=== PATIENT | male | born 1945 | race Caucasian/White ===

== ENCOUNTER 2020-08-01 10:04 | Emergency (ER) | payer MEDICARE, SELFPAY ==
--- NOTE | 2020-08-01 10:16 | ED.LOWEXIN ---
HPI - Extremity Injury (Lower) General Chief Complaint: Extremity Problem,Nontraumatic Stated Complaint: right leg pain Time Seen by Provider: 08/01/20 10:16 Source: patient and RN notes reviewed History of Present Illness HPI Narrative: Patient is a 74-year-old male who presents the urgent care with complaints of right leg pain extending from the right hip/buttocks down to the knee. Patient states he is extremely active and plays pickle ball, tennis and does a lot of walking and tracking his steps. Patient states that the day before he woke up with the pain, he had been walking up and down the lateral several times at home. Otherwise, that was the only difference in activity. Patient states that he is extremely active and does have a history of sciatica, which exacerbated when driving a long distance. Patient denies of any chest pain or shortness of breath. Denies of any swelling or redness to the leg. States that his pain is exacerbated when laying flat in bed or with weightbearing activity. Patient states it is also difficult to bend over. Denies of any known injury, fall, trauma to the leg. Currently denies of any back pain. No other acute complaints. No acute distress noted. Patient aware of the plan of care. Some parts of this dictation were generated by voice recognition software and may contain typographical and/or grammatical inaccuracies. Related Data Home Medications Medication Instructions Recorded Confirmed amlodipine 10 mg PO DAILY 08/01/20 08/01/20 atorvastatin 20 mg PO DAILY 08/01/20 08/01/20 glucosamine sulfate [Glucosamine] 500 mg PO BID 08/01/20 08/01/20 omega-3 fatty acids-vitamin E 1 cap PO DAILY 08/01/20 08/01/20 [Fish Oil] Allergies Allergy/AdvReac Type Severity Reaction Status Date / Time No Known Allergies Allergy Mild Verified 08/01/20 10:24 Review of Systems Review of Systems: Narrative: CONSTITUTIONAL: Denies fever, chills, or sweats. EYES: Denies visual changes, redness, or discharge. ENT: Denies rhinorrhea, congestion, sore throat, or otalgia. CARDIOVASCULAR: Denies chest pain, palpitations, or edema. RESPIRATORY: Denies cough or dyspnea. GASTROINTESTINAL: Denies abdominal pain, nausea, vomiting, or diarrhea. GENITOURINARY: Denies dysuria or hematuria. SKIN: Denies rash or itching. MUSCULOSKELETAL: Reports of right hip pain extending to the knee NEUROLOGIC: Denies headache, numbness, or weakness. All other systems reviewed are negative, except as documented in HPI. PMFSH Comments At the time of my signature, I reviewed and agree with the nursing past medical, surgical, social, and family history. There is no relevant family history pertinent to the patient complaint. Exam Narrative: Exam Narrative: GENERAL: This is a well-nourished, well-developed patient, in no apparent distress. HEAD: normocephalic, atraumatic. EYES: PERRL. Sclera clear/white. Vision is grossly intact. EARS: External ears normal NOSE: External nose normal with no obvious nasal discharge, nares without redness, no rhinorrhea. THROAT: Mucous membranes moist NECK: Neck supple SKIN: warm, intact with no suspicious lesions or rash, good texture and turgor. NEURO: awake, alert, and oriented to person, place and time. There were no obvious focal neurologic abnormalities. EXTREMITIES: No clubbing, cyanosis, or edema. No obvious edema or erythema noted to the right lower extremity. Range of motion to right lower extremity within normal limits. Pain to the right posterior hip extending to the posterior right knee exacerbated with legs hanging, weightbearing, and bending at the waist. No obvious deformity and no shortening of the right lower extremity. Positive strong right pedal pulse with capillary refill less than 2 seconds. BACK: Nontender without deformity or crepitance. Course Vital Signs Vital signs: Vital Signs Temperature 98.2 F 08/01/20 10:21 Pulse Rate 67 08/01/20 10:21 Respiratory Rate 20 08/01
[2020-08-01 10:21] VITALS: BP 170/64; PULSE 67; RESP 20; TEMP 36.8; O2SAT 100
== END 2020-08-01 10:45 | disposition home or self-care (01) ==
PROVIDERS: Emergency Provider Nurse Practitioner Family; PCP Nurse Practitioner Adult Health
DX: M54.31 Sciatica, right side (principal); M76.31 Iliotibial band syndrome, right leg; E78.00 Pure hypercholesterolemia, unspecified; I10 Essential (primary) hypertension
CPT/HCPCS: 99213; G0463

== ENCOUNTER 2021-06-09 14:47 | Outpatient (CLI) | payer MEDICARE, SELFPAY ==
--- NOTE | ~2021-06-09 | XR_ITS ---
EXAMINATION: XR bone survey comp/metastic DATE: 06/09/2021 15:56 INDICATION: Plasma cell disorder TECHNIQUE: A skeletal survey was performed including AP views of the chest, abdomen and pelvis; AP an d lateral/lateral swimmers views of the cervical, thoracic and lumbar spine; lateral view of the skul l, and AP and lateral views of the appendicular skeleton excluding the hands and feet. COMPARISON: None. FINDINGS: Scattered moderate degenerative skeletal changes in the spine and appendicular skeleton. There is a s yarelis 9 x 5 mm lucent lesion at the subtrochanteric proximal right femur which is seen only on the AP projections. No other suspicious lytic or blastic bone lesions. Prominent osteophyte and heterotopic ossification at the distal right humeral lateral epicondyle which could be enthesopathic or sequela of old trauma. There are couple subtle nodular opacities projecting over the lateral aspect of the ri ght upper and lower lung zones. Left lung is clear. No pleural effusion or pneumothorax. Cardiomedias tinal silhouette is normal. Normal bowel gas pattern. IMPRESSION: 1. Single small lucent lesion projecting over the subtrochanteric proximal right femur which is seen only on the frontal projections equivocal for artifact versus a lytic lesion. No other suspicious bon e lesions identified. 2. Couple subtle nodular opacities projecting over the right upper and lower lung zones. Recommend est CT for further evaluation. Reviewed, dictated and finalized at location A. IMPRESSION: 1. Single small lucent lesion projecting over the subtrochanteric proximal righ t femur which is seen only on the frontal projections equivocal for artifact ve rsus a lytic lesion. No other suspicious bone lesions identified. 2. Couple subtle nodular opacities projecting over the right upper and lower shayy ng zones. Recommend chest CT for further evaluation.
== END 2021-06-09 14:48 | disposition home or self-care (01) ==
LOC: ANHIMG 14:51
PROVIDERS: PCP Nurse Practitioner Adult Health; Visit Provider Internal Medicine Hematology & Oncology
DX: D72.9 Disorder of white blood cells, unspecified (principal); M89.9 Disorder of bone, unspecified; R91.8 Other nonspecific abnormal finding of lung field
CPT/HCPCS: 77075

== ENCOUNTER 2021-06-13 01:57 | Day surgery (SDC) | payer MEDICARE, SELFPAY ==
[2021-06-08 09:13] VITALS: BMI 32.3
[2021-06-13 08:48] VITALS: BP 171/66; PULSE 90; RESP 20; TEMP 36.6; O2SAT 100
[2021-06-13] MEDS: LACTATED RINGERS 1,000 ML 150 ML IV CONT (08:56)
--- NOTE | 2021-06-13 09:45 | WPDANESEPPF ---
Anes - Initial Pre Proc Eval Procedure: Operation Date: 06/13/21 10:00 Proposed Procedures p Esophagogastroduodenoscopy - Ubaldo Hernandez MD Date/Time: 06/13/21 09:45 Surgeon: Ubaldo Hernandez MD Pre Op Diagnosis: abnormal CAT scan Patient Data Age: 75 Gender: M Height: 1.78 m Weight: 102.5 kg Last Vital Signs Temp 97.9 F 06/13/21 08:48 Pulse 90 06/13/21 08:48 Resp 20 06/13/21 08:48 BP 171/66 H 06/13/21 08:48 Pulse Ox 100 06/13/21 08:48 Allergies Allergy/AdvReac Type Severity Reaction Status Date / Time No Known Allergies Allergy Mild Verified 06/13/21 08:47 Home Medications Medication Instructions Recorded Confirmed Type amlodipine 10 mg PO HS 08/01/20 06/13/21 History atorvastatin 20 mg PO HS 08/01/20 06/13/21 History glucosamine sulfate [Glucosamine] 500 mg PO BID 08/01/20 06/13/21 History ibuprofen 800 mg PO TID PRN #20 tablet 08/01/20 06/13/21 Rx omega-3 fatty acids-vitamin E 1 cap PO DAILY 08/01/20 06/13/21 History [Fish Oil] aspirin [Aspir-81] 81 mg PO DAILY 06/08/21 06/13/21 History famotidine 40 mg PO DAILY 06/08/21 06/13/21 History hydrocodone-acetaminophen 1 tablet PO QID PRN 06/08/21 06/13/21 History Patient hx anesthesia problems: none Family hx anesthesia problems: none Results Review: All pre-operative results and documents have been reviewed as part of the pre-operative evaluation. [facility] Past Medical History Medical History (Updated 06/13/21 @ 09:40 by Mike Nevarez MD) Hyperlipidemia Hypertension Social History Social History Smoking status: Never smoker Alcohol intake: current Drinks per week: 1 Spiritual care concerns: No Anes - Eval Final PreProcedure Day of Procedure 06/13/21 09:45 Patient weight: obese Heart: regular rate and rhythm Lungs: clear to auscultation Airway: Mallampati scale class II Neurological: alert and oriented Last oral intake: >/= 8 hours ASA classification: III Emergent: no Anesthetic plan: proceed Anesthesia type and monitoring: general GIVS and standard monitoring Results Review: All pre-operative results and documents have been reviewed as part of the pre-operative evaluation. Informed Consent: The patient's anesthetic plan and its attendant risks and benefits were discussed with the patient/family/POA. Questions were solicited and answers provided to the satisfaction of the patient/family/POA.
--- NOTE | 2021-06-13 09:58 | PM.HPGS ---
History of Present Illness History of Present Illness Consent: Risks, benefits, and alternatives have been discussed and questions answered. Patient agrees to proceed with procedure. Chief complaint: abnormal CAT scan Narrative: Lavell Cao is a 75 year old male with bloating, abdominal discomfort and weight loss. CT scan showed thickening of gastric mucosa and bone mets suggestive of malignancy. He had colonoscopy in the past but never EGD. Already saw oncology and next week will get PET scan Review of Systems Constitutional: Constitutional: Denies headache(s) and Denies weakness Eyes: Eyes: Denies blurry vision ENT: Reports Normal hearing present, Denies headache(s) and Denies neck pain Cardiovascular: Cardiovascular: Denies chest pain and Denies dyspnea Respiratory: Respiratory: Denies dyspnea Gastrointestinal: Gastrointestinal: Reports no additional gastrointestinal complaints Genitourinary: Genitourinary: Denies dysuria Musculoskeletal: Musculoskeletal: Denies neck pain Integumentary/Breasts: Skin/Breast: Denies dry skin Neurologic: Reports Normal hearing present, Denies headache(s) and Denies weakness Psychiatric: Psychiatric: Denies anxiety Endocrine: Endocrine: Denies change in body appearance Hematologic/Lymphatic: Hematologic/Lymphatic: Denies easy bleeding Allergic/Immunologic: Allergic/Immunologic: Denies urticaria PMFSH Past Medical History Medical History (Updated 06/13/21 @ 10:00 by Ubaldo Hernandez MD) Abnormal CT scan, stomach Bone lesion Hyperlipidemia Hypertension Social History Social History Smoking status: Never smoker Alcohol intake: current Drinks per week: 1 Spiritual care concerns: No Meds Home Medications and Allergies Home Medications Medication Instructions Recorded Confirmed Type amlodipine 10 mg PO HS 08/01/20 06/13/21 History atorvastatin 20 mg PO HS 08/01/20 06/13/21 History glucosamine sulfate [Glucosamine] 500 mg PO BID 08/01/20 06/13/21 History ibuprofen 800 mg PO TID PRN #20 tablet 08/01/20 06/13/21 Rx omega-3 fatty acids-vitamin E 1 cap PO DAILY 08/01/20 06/13/21 History [Fish Oil] aspirin [Aspir-81] 81 mg PO DAILY 06/08/21 06/13/21 History famotidine 40 mg PO DAILY 06/08/21 06/13/21 History hydrocodone-acetaminophen 1 tablet PO QID PRN 09/23/21 09/28/21 History Allergies Allergy/AdvReac Type Severity Reaction Status Date / Time No Known Allergies Allergy Mild Verified 06/13/21 08:47 Vital Signs Vital Signs - 24 hr 06/13/21 08:48 Temperature 97.9 F Pulse Rate 90 Respiratory Rate 20 Blood Pressure 171/66 H Pulse Oximetry 100 Exam Const: General: comfortable and no acute distress HENMT: General nose exam: Normal nares present Eyes: General: appearance normal, both eyes and all related structures Neck: Neck: no JVD Resp: Auscultation: clear to auscultation bilaterally Cardio: Rate: regular rate Rhythm: regular rhythm GI: Inspection: non-distended GI Palp: Yes Soft to palpation Skin: General skin exam: normal color Neuro: General: gait normal Speech: normal speech Extrem: General: normal to inspection Psych: Mental Status: mental status grossly normal Assessment and Plan Assessment and plan (1) Abnormal CT scan, stomach: Code(s): R93.3 - Abnormal findings on diagnostic imaging of other parts of digestive tract Status: Acute Assessment and Plan: egd with bx (2) Bone lesion: Code(s): M89.9 - Disorder of bone, unspecified Status: Acute Assessment and Plan: already seeing oncology
[2021-06-13] MEDS: BENZOCAINE (*SP) 60 ML SPRAY CAN (HURRICAINE) 1 SPRAY MUCOUS MEM (10:04)
[2021-06-13 10:28] VITALS: BP 110/60; PULSE 65; RESP 22; O2SAT 97
[2021-06-13 10:38] VITALS: BP 98/54; PULSE 60; RESP 20; O2SAT 93
[2021-06-13 10:48] VITALS: BP 107/43; PULSE 66; RESP 18; O2SAT 94
== END 2021-06-13 11:10 | disposition home or self-care (01) ==
PROVIDERS: PCP Nurse Practitioner Adult Health; Visit Provider Internal Medicine Gastroenterology
PROC: 0DJ08ZZ Inspection of Upper Intestinal Tract, Via Natural or Artificial Opening Endoscopic (ICD-10-PCS; CPT 43235; principal; 2021-06-13 10:00)
DX: K44.9 Diaphragmatic hernia without obstruction or gangrene (principal); K31.7 Polyp of stomach and duodenum; M89.9 Disorder of bone, unspecified; R14.0 Abdominal distension (gaseous); I10 Essential (primary) hypertension; E78.5 Hyperlipidemia, unspecified; E66.9 Obesity, unspecified; Z68.32 Body mass index [BMI] 32.0-32.9, adult
CPT/HCPCS: 43239; 43251; 88305; 88342; J2704; J7120

== ENCOUNTER 2021-06-15 07:25 | Outpatient (CLI) | payer MEDICARE, SELFPAY ==
--- NOTE | ~2021-06-15 | PE_ITS ---
EXAMINATION: PET skull to mid thigh DATE: 06/15/2021 09:52 INDICATION: Lytic bone lesions on prior radiographs TECHNIQUE: Blood glucose level was 99 mg/dL. 12.143 mCi of 18-fluorodeoxyglucose (18-FDG) was adminis tered i.v. Low dose computed tomography (CT) images were acquired from the base of the brain to the p roximal thighs for attenuation correction and anatomic localization. Positron emission tomography (PE T) images were acquired in the same distribution beginning 73 minutes after injection. Images includi ng fused PET/CT images were reconstructed in axial, coronal, and sagittal planes. Automated exposure control technique was employed. The dose-length product was 1236.38mGy-cm. COMPARISON: Skeletal survey dated 06/09/2021 FINDINGS: Musculoskeletal: There are numerous lytic bone lesions throughout the visualized axial and appendicular skeleton which demonstrate marked FDG uptake, many with maximal SUV levels of >20 . Head/neck: There is symmetric increased activity in the oral cavity, laryngeal muscles and ocular muscles withou t CT correlate, likely physiologic. There is an approximately 3 x 2 cm FDG avid paraspinal mass along the right side of the posterior elements of C2 with maximal SUV of 16.0. No pathologically enlarged cervical lymphadenopathy in the visualized head or neck. Chest: Respiratory motion the lungs. There is atelectasis at the bilateral lung bases grossly left lower lob e. No pneumonia, suspicious pulmonary nodules or pleural effusion. Cardiomegaly. There is an approxim ately 5.8 x 4.7 cm region of marked increased FDG uptake with maximal SUV of 19.9 in the region of th e anterior two thirds of the right atrium without evident correlate on CT images. There is a signific antly higher than the activity in either the blood pool or the remainder of the myocardium. Atheroscl erotic coronary artery calcific lesions. No pericardial effusion. Large markedly FDG avid paraspinal mass along the left anterior side of the lower thoracic spine at t he level of T10-T12 which at the level of T11 measures 7.9 x 2.8 cm in maximal orthogonal dimensions and which extends approximately 10.2 cm craniocaudally. This appears to arise from a large lytic lesi on at T11. There is a pathologic compression fracture of the vertebral body as well as erosion of the left anterolateral wall of the vertebral body. The mass as well as the increased uptake in the verte bral body demonstrates a maximal SUV of 21.6. Similar smaller FDG avid paraspinal mass on the right s umesh of T4 and T5. Abdomen/pelvis/proximal thighs: Physiologic renal accumulation and excretion of FDG activity in the kidneys, bladder and along portio ns of ureters. Normal degree and heterogenous pattern of increased uptake throughout the liver withou t radiologic correlate or dominant FDG avid lesion. There is a 3.0 cm low-attenuation hepatic cyst wi th corresponding fluid beneath defect on the PET images. The gallbladder, spleen and bilateral adrena l glands are normal. There are couple FDG avid lesions in the pancreatic head and body with maximal S UV of 5.7 and 6.3 respectively which are without evident correlate on the noncontrast CT images. The size of the region of increased FDG uptake is approximately 2-3 cm for both lesions. Mild uptake sca ttered throughout the bowels without radiologic correlate, also likely physiologic. Small fat-contain ing left inguinal hernia. As in the thoracic spine and there are smaller regions of paraspinal soft t issue with increased FDG uptake. There is a larger extraosseous mass extending anteriorly and posteri dewey from a lytic lesion at the central left iliac wing which is difficult on CT images to discrimina te from the surrounding gluteal and iliac is muscles. The region of increased FDG uptake measures iván roximately 7 x 6 cm in maximal diameter with maximal SUV of 22.7. Similar region region of increased
[2021-06-15 07:49] LABS: Glucose Point of Care 99 mg/dl (65-105)
== END 2021-06-15 07:26 | disposition home or self-care (01) ==
LOC: ANHIMG 07:28
PROVIDERS: PCP Nurse Practitioner Adult Health; Visit Provider Nurse Practitioner Adult Health
DX: R93.3 Abnormal findings on diagnostic imaging of other parts of digestive tract (principal)
CPT/HCPCS: 78815; A9552

== ENCOUNTER 2021-06-16 02:40 | Day surgery (SDC) | payer MEDICARE, SELFPAY ==
--- NOTE | ~2021-06-16 | BM_ITS ---
EXAMINATION: CCL bone marrow asp w bx diag ORDER COMPLETED DATE: 06/16/2021 11:02 INDICATION: Plasma cell disorder TECHNIQUE: A time-out was performed to verify the patient's name, date of , and procedure to b e performed. The procedure including the risks, benefits, and alternatives was discussed with the pat ient. Risks discussed included bleeding and infection. The patient understood the risks and agreed to proceed. The skin overlying the left posterior iliac spine was prepped and draped in usual sterile f ashion. Anesthetic was administered with 1% lidocaine subcutaneously. Systemic analgesia was provided with 100 mcg fentanyl IV. An 11 gauge needle was inserted into the ilium with fluoroscopic guidance. Bone marrow was aspirated. An 8 gauge needle was then inserted into the ilium with fluoroscopic guid ance. A core bone marrow biopsy was obtained. There were no immediate complications. Fluoroscopy expo sure time was 0.1 minutes. The total number of images was 10. FINDINGS: Real-time fluoroscopy demonstrates a marker overlying the left posterior iliac spine. IMPRESSION: 1. Successful fluoro-guided bone marrow aspiration. 2. Successful fluoro-guided bone marrow core biopsy. Reviewed, dictated and finalized at location A.
[2021-06-16 09:14] VITALS: BMI 32.3
[2021-06-16 09:20] VITALS: BP 174/58; PULSE 93; RESP 13; TEMP 36.5; O2SAT 98
[2021-06-16 10:07] LABS: Basophils Percent Auto 0.6 % (0.2-1.2); Eosinophils Percent Auto 0.6 % (0-4.4); Hematocrit 29.7 % (42.0-52.0); Hemoglobin 9.7 g/dL (14.0-18.0); Immature Granulocyte Absolute 0.02 K/mm3 (0.00-0.031); Immature Granulocyte Percent A 0.6 % (0-0.5); Lymphocytes Absolute Auto 0.67 K/mm3 (0.9-3.2); Lymphocytes Percent Auto 20.7 % (18.3-44.2); Mean Corpuscular HGB Conc 32.7 g/dl (32-36); Mean Corpuscular Hemoglobin 31.3 pg (26-34); Mean Corpuscular Volume 95.8 fl (80-100); Mean Platelet Volume 8.8 fl (7.4-10.4); Monocytes Absolute Auto 0.3 K/mm3 (0.1-0.6); Monocytes Percent Auto 10.2 % (2.6-8.5); Neutrophils Absolute Auto 2.2 K/mm3 (1.3-6.7); Neutrophils Percent Auto 67.3 % (45.5-73.1); Platelet Count Result 157 k/mm3 (150-375); Red Cell Distribution Width 14.2 % (11.5-14.5); White Blood Count 3.2 K/mm3 (4.5-10.0)
--- NOTE | 2021-06-16 10:15 | WPDMODSED ---
Moderate Sedation Note-Pt Data Patient Data Allergies Allergy/AdvReac Type Severity Reaction Status Date / Time No Known Allergies Allergy Mild Verified 06/13/21 08:47 Home Medications Medication Instructions Recorded Confirmed Type amlodipine 10 mg PO HS 08/01/20 06/16/21 History atorvastatin 20 mg PO HS 08/01/20 06/16/21 History glucosamine sulfate [Glucosamine] 1,000 mg PO BID 08/01/20 06/16/21 History omega-3 fatty acids-vitamin E 1 cap PO DAILY 08/01/20 06/16/21 History [Fish Oil] aspirin [Aspir-81] 81 mg PO DAILY 06/08/21 06/16/21 History famotidine 40 mg PO DAILY 06/08/21 06/16/21 History hydrocodone-acetaminophen 1 tablet PO Q6H PRN 06/16/21 06/16/21 History valacyclovir 1,000 mg PO TID 06/16/21 06/16/21 History Sedation/Anesthesia: No previous sedation/anesthesia problems (including family history). PMFSH Past Medical History Medical History Abnormal CT scan, stomach Bone lesion Hyperlipidemia Hypertension Social History Social History Smoking status: Never smoker Alcohol intake: current Drinks per week: 1 Spiritual care concerns: No Mod Sed Physical Exam Physical Exam Pre Procedural Exam: Normal: Appearance, Eyes, Neck, Throat, Lungs, Heart Rate, Heart Rhythm, Abdomen and Extremities Hours since solid foods: 12 Hours since liquid intake: 12 Mallampati Classification: class II Internal Medicine - PN: Obj Da Vital Signs Vital Signs: Vital Signs - 24 hr 06/16/21 09:20 Temperature 97.7 F Pulse Rate 93 Respiratory Rate 13 Blood Pressure 174/58 H Pulse Oximetry 98 Labs CBC & Chem 7: 06/16/21 09:24 ASA Classification/Sedation ASA Classification/Sedation ASA Class: II Emergent: No Risks: Risks, benefits and alternatives explained and patient/family accepted plan for sedation. Patient re-evaluated immediately prior to sedation.
[2021-06-16 10:20] LABS: Prothrombin Time 13.5 Seconds (11.1-14.7)
[2021-06-16 11:00] VITALS: BP 182/76; PULSE 85; RESP 18; TEMP 36.7; O2SAT 100
[2021-06-16 11:15] VITALS: BP 162/71; PULSE 86; RESP 13; TEMP 36.5; O2SAT 100
[2021-06-16 11:30] VITALS: BP 169/72; PULSE 82; RESP 20; O2SAT 100
== END 2021-06-16 11:49 | disposition home or self-care (01) ==
PROVIDERS: PCP Nurse Practitioner Adult Health; Referring Provider Internal Medicine Hematology & Oncology; Visit Provider Radiology Diagnostic Radiology
DX: C90.10 Plasma cell leukemia not having achieved remission (principal); I10 Essential (primary) hypertension; E78.5 Hyperlipidemia, unspecified; Z79.82 Long term (current) use of aspirin
CPT/HCPCS: 36415; 38222; 85025; 85610; 88305; 88311; 88313; 88341; 88342; 88360; 88364; 88365; J1642; J3010; J7040

== ENCOUNTER 2021-07-11 12:20 | Inpatient (IN) | payer MEDICARE, SELFPAY ==
[2021-07-11] VITALS (29 sets, daily range): BP systolic 134–186; BP diastolic 50–70; PULSE 77–99; RESP 16–26; TEMP 36.6–37; O2SAT 97–100; BMI 31.6
--- NOTE | ~2021-07-11 | CT_ITS ---
EXAMINATION: CT abdomen pelvis wo con DATE: 07/11/2021 16:49 INDICATION: Diarrhea. Generalized abdominal pain. TECHNIQUE: Computed tomography (CT) of the abdomen and pelvis was performed without intravenous contr ast. The dose-length product was 1094.20 mGy-cm. Automated exposure control and iterative reconstruct ion technique were employed. COMPARISON: Pet/CT scan dated 06/15/2021. FINDINGS: There is dependent atelectasis. Cardiomegaly. Trace pericardial effusion. No significant pl eural effusion. There are liver cysts. Gallbladder is distended. The spleen, pancreas, adrenal glands and kidneys are unremarkable. The colon is dilated with large amount of retained fecal material. No definite obstruction. There is atherosclerosis of the aorta without aneurysm. There is abnormal parav ertebral soft tissue of the upper abdomen with adjacent lytic lesions in the spine. This may represen t extraosseous extension of metastases or hematoma from fractures. There are widespread lytic lesions throughout the spine and pelvis. There is mild wedge compression fractures of T11 and L3 which are l ikely pathologic. IMPRESSION: 1. Markedly distended fecal filled colon without definite obstruction, likely ileus. 2: Widespread lytic lesions of the spine and pelvis. Differential diagnosis includes multiple myelom a, lymphoma and metastatic disease. Probable pathologic fractures of T11 and L3. Reviewed, dictated and finalized at location A. IMPRESSION: 1. Markedly distended fecal filled colon without definite obstruction, likely i leus. 2: Widespread lytic lesions of the spine and pelvis. Differential diagnosis in cludes multiple myeloma, lymphoma and metastatic disease. Probable pathologic f ractures of T11 and L3.
--- NOTE | ~2021-07-11 | XR_ITS ---
EXAMINATION: XR abdomen/kub 1V INDICATION: Ileus TECHNIQUE: Supine views of the abdomen were obtained on 2 radiographs. COMPARISON: 07/13/2021 FINDINGS: Distended loops of large and small bowel persist without significant change. No free intrap eritoneal gas is identified. There are phleboliths of the pelvis. Mild osteoarthritis is noted in the hips. IMPRESSION: 1. Persistently dilated large and small bowel without significant change, consistent with ileus. Reviewed, dictated and finalized at location A. IMPRESSION: 1. Persistently dilated large and small bowel without significant change, consi stent with ileus.
--- NOTE | ~2021-07-11 | XR_ITS ---
EXAMINATION: XR sm bowel follow through DATE: 07/14/2021 10:26 INDICATION: Ileus TECHNIQUE: Oral contrast was administered, and sequential radiographs of the abdomen were obtained un til oral contrast was noted to be in the proximal colon. Fluoroscopy was not performed. COMPARISON: KUB from earlier today FINDINGS: Transit time from the stomach to proximal colon was approximately 30 minutes. There has bee n an overall decrease in small bowel distention with a few persistent dilated small bowel loops ident ified but many now normal in caliber. No free peritoneal gas is identified. IMPRESSION: 1. Improving ileus. Reviewed, dictated and finalized at location A. IMPRESSION: 1. Improving ileus.
--- NOTE | ~2021-07-11 | XR_ITS ---
EXAMINATION: XR abdomen obstructive series DATE: 07/13/2021 07:45 INDICATION: Adynamic ileus. TECHNIQUE: Upright and supine views of the abdomen were obtained. COMPARISON: CT abdomen and pelvis 07/11/2021 FINDINGS: There is gaseous distention of the colon. There is a small volume of stool in the colon. Th ere is mildly dilated small bowel. No free intraperitoneal gas. IMPRESSION: 1. Dilated small and large bowel, likely adynamic ileus. Reviewed, dictated and finalized at location A.
--- NOTE | ~2021-07-11 | US_ITS ---
EXAMINATION:US venous doppler LE BI INDICATION:Leg swelling TECHNIQUE: Multiple grayscale, color flow and Doppler images of the right and left lower extremity de ep venous systems were obtained and reviewed. COMPARISON:No prior studies for comparison. FINDINGS: The common femoral, superficial femoral and popliteal veins demonstrate normal respiratory variation, augmentation and compressibility. Color flow is also seen within the posterior tibial, pe roneal, greater saphenous and profunda veins. IMPRESSION: 1: No lower extremity deep venous thrombosis. Reviewed, dictated and finalized at location A.
--- NOTE | 2021-07-11 13:34 | ED.GENADULT ---
HPI - General Adult General Chief complaint: Allergic Reaction Stated complaint: rash Time Seen by Provider: 07/11/21 12:44 Source: patient History of Present Illness HPI narrative: Patient is a 75 male complaining of generalized rash starting 2 weeks. His rash is erythematous. There is no known alleviating or exacerbating factor. The rash initially started on his legs, but spread to the rest of his body. He also has some abdominal pain and diarrhea. He has back pain. He is undergoing treatment for myeloma. Related Data Home Medications Medication Instructions Recorded Confirmed amlodipine 10 mg PO HS 08/01/20 07/10/21 atorvastatin 20 mg PO HS 08/01/20 07/10/21 famotidine 40 mg PO DAILY 06/08/21 07/10/21 morphine 30 mg PO Q12H 06/29/21 07/10/21 polyethylene glycol 3350 [Miralax] 17 g PO DAILY PRN 06/29/21 07/10/21 acyclovir 200 mg PO TID 07/10/21 07/10/21 furosemide 20 mg PO DAILY 07/10/21 07/10/21 oxycodone 30 mg PO Q4H PRN 07/10/21 07/10/21 sulfamethoxazole-trimethoprim 1 tablet PO Q12H 07/10/21 07/10/21 [SMZ-TMP DS] acyclovir 07/11/21 dexamethasone 07/11/21 lenalidomide [Revlimid] mg PO 07/11/21 oxycodone-acetaminophen 07/11/21 Allergies Allergy/AdvReac Type Severity Reaction Status Date / Time No Known Allergies Allergy Mild Verified 07/06/21 11:23 Review of Systems Constitutional: Constitutional: Denies chills, Denies fever(s), Denies headache(s) and Denies weakness Eyes: Eyes: Denies blurry vision ENT: Denies headache(s) and Denies neck pain Cardiovascular: Cardiovascular: Denies chest pain and Denies dyspnea Respiratory: Respiratory: Denies cough and Denies dyspnea Gastrointestinal: Gastrointestinal: Reports abdominal pain, Reports diarrhea, Denies nausea and Denies vomiting Genitourinary: Genitourinary: Denies hematuria and Denies dysuria Musculoskeletal: Musculoskeletal: Denies back pain and Denies neck pain Integumentary/Breasts: Skin/Breast: Reports rash Neurologic: Denies headache(s) and Denies weakness [facility] Past Medical History Medical History (Updated 07/11/21 @ 20:37 by Erma Stiles MD) Abnormal CT scan, stomach Anxiety Bone lesion Hyperlipidemia Hypertension Shingles Surgical History Surgical History (Updated 07/11/21 @ 20:24 by Leslie Vera NP) H/O lateral meniscus repair of right knee History of bone marrow biopsy History of ear surgery Family History Family History (Updated 07/11/21 @ 20:20 by Leslie Vera NP) Father Lung disease Social History Social History (Updated 07/11/21 @ 20:24 by Leslie Vera NP) Social History: The patient lives with his . Who is the power real estate associate attorney for healthcare. He has 2 children. The patient is retired from [employer] when he worked in [employer]. The patient's lifelong nonsmoker does not use any alcohol marijuana or illicit drugs. Code status DNR Smoking status: Never smoker Alcohol intake: current Drinks per week: 1 Spiritual care concerns: No Exam Const: General: no acute distress and well developed Orientation/consciousness: oriented to person, oriented to place, oriented to time and patient oriented x3 HENMT: Head: normocephalic Ears: external ears normal General nose exam: Normal external nose present Eyes: General: appearance normal, both eyes and all related structures Conjunctivae: conjunctivae normal Neck: Neck: normal visual inspection and full ROM Chest: Chest palpation & inspection: normal inspection of the chest and no tenderness Resp: Effort & Inspection: normal respiratory effort Auscultation: clear to auscultation bilaterally Cardio: Rate: regular rate Rhythm: regular rhythm GI: GI Palp: No abdominal tenderness and Yes Soft to palpation Skin: General skin exam: normal color, turgor normal and erythema (diffuse, worse on both lower legs) Neuro: General: oriented to person, oriented to place, oriented to time and patient oriented x3 Cogn
[2021-07-11 14:01] LABS: Hematocrit 29.2 % (42.0-52.0); Hemoglobin 9.5 g/dL (14.0-18.0); Mean Corpuscular HGB Conc 32.5 g/dl (32-36); Mean Corpuscular Hemoglobin 31.6 pg (26-34); Mean Platelet Volume 9.8 fl (7.4-10.4); Platelet Count Result 168 k/mm3 (150-375); Red Blood Count 3.01 M/mm3 (4.6-6.20); Red Cell Distribution Width 15.9 % (11.5-14.5); White Blood Count 4.1 K/mm3 (4.5-10.0)
[2021-07-11 14:09] LABS: Alanine Aminotransferase 22 U/L (4-50); Albumin Level 3.7 g/dL (3.5-5.1); Alkaline Phosphatase 151 U/L (38-126); Anion Gap 9 mmol/L (8-16); Aspartate Amino Transferase 22 U/L (17-59); Bilirubin,Total 0.6 mg/dL (0.2-1.3); Blood Urea Nitrogen 27 mg/dL (9-20); Carbon Dioxide 22 mmol/L (22-30); Chloride 102 mmol/L (98-107); Estimated CRCL calculation 45 ml/min; Estimated Glomerular Filt Rate 46; Glucose 113 mg/dL (65-110); Potassium 4.4 mmol/L (3.4-5.0); Sodium 133 mmol/L (137-145)
[2021-07-11 14:17] LABS: CRP 4.7 mg/dL (<1.0)
[2021-07-11] MEDS: SODIUM CHLORIDE 0.9% IV 1,000 ML 999 ML IV CONT (14:30)
[2021-07-11 15:00] LABS: Band Neutrophils Percent 7 % (0-6); Eosinophils Absolute Manual 0.04 K/mm3 (0.02-0.5); Eosinophils Percent Manual 1 % (0-4); Lymphocytes Absolute Manual 0.08 K/mm3 (1.1-4.5); Monocytes Absolute Manual 0.04 K/mm3 (0.1-0.90); Monocytes Percent Manual 1 % (3-9); Neutrophils Absolute Manual 3.93 K/mm3 (1.3-6.7); Neutrophils Percent Manual 89 % (46-73); Platelet Estimate Adequate (Adequate); Total Cells Counted 100
[2021-07-11 15:01] LABS: Anisocytosis 2+ (NORMAL)
[2021-07-11 15:17] LABS: Add Urine Microscopic? NO; Appearance Urine Clear (Clear); Bilirubin Urine Negative (Negative); Blood Urine Negative (Negative); Color Urine Yellow (Yellow); Glucose Urine UA Negative (Negative); Ketones Urine Negative (Negative); Leukocyte Esterase Ur Negative LEU/UL (Negative); Nitrate Urine Negative (Negative); Protein Urine Negative (Negative); Specific Grav Ur 1.017 (1.001-1.035); Urobilinogen Urine Negative mg/dL (<2.0)
[2021-07-11 15:32] LABS: Erythrocyte Sedimentation Rate 74 mm/hr (0-20)
[2021-07-11] MEDS: ceFAZolin 2 GM/D5W 50 ML 2 GM/50 ML BAG IVPB (19:28)
--- NOTE | 2021-07-11 20:10 | PM.IMHP ---
H&P: HPI History of Present Illness Date/Time: 07/11/21 20:10 this is a 75 year old male patient who has a history of multiple myeloma and sees Dr. art. The patient was supposed to start radiation treatment today and was not able to proceed with that. The patient stated that he is had a rash for at least 1 month and has been getting worse. The patient stated that he has been on Bactrim the whole time. He is not quite sure why he is on Bactrim but his lower extremities have gotten more red. The patient has lower extremity swelling and facial swelling he stated he also has some sores in his mouth. Patient went to radiation oncology and was sent to the emergency room for evaluation of his rash and possible steroids. It is unclear if the patient is having allergic reaction or if it is just due to the Bactrim. Patient also has renal failure which could be related to his multiple myeloma. The patient was given IV fluids OxyContin and Ancef in the emergency room. Venous Dopplers were read as no lower extremity deep vein thrombosis. Abdominal pelvis CT was read as the following 1. Markedly distended fecal filled colon without definite obstruction, likely ileus. 2: Widespread lytic lesions of the spine and pelvis. Differential diagnosis includes multiple myeloma, lymphoma and metastatic disease. Probable pathologic fractures of T11 and L3. The patient was sitting up in the chair and stated that the bed was uncomfortable and that he typically lays in recliner and cannot lay in the bed. The patient stated that he needed to get into a recliner otherwise he was not going to stay here and get treatment. The patient is being admitted to observation status on the date of service of 07/11/2021. Chief Complaint: Rash Review of Systems Review of Systems: All systems reviewed & are unremarkable except as noted in HPI and below Constitutional: Constitutional: Reports as per HPI and Reports no additional constitutional complaints Eyes: Eyes: Reports as per HPI and Reports no additional eye complaints ENT: Reports system reviewed and no additional complaints, except as documented and Reports Normal hearing present Cardiovascular: Cardiovascular: Reports no additional cardiovascular complaints Respiratory: Respiratory: Reports no additional respiratory complaints and Reports no additional respiratory complaints Gastrointestinal: Gastrointestinal: Reports as per HPI and Reports no additional gastrointestinal complaints Musculoskeletal: Musculoskeletal: Reports no additional musculoskeletal complaints Integumentary/Breasts: Skin/Breast: Reports system reviewed and no additional complaints, except as docu and Reports as per HPI Neurologic: Reports system reviewed and no additional complaints, except as documented, Reports as per HPI and Reports Normal hearing present Psychiatric: Psychiatric: Reports no additional psychiatric complaints and Reports as per HPI Endocrine: Endocrine: Reports no additional endocrine complaints Hematologic/Lymphatic: Hematologic/Lymphatic: Reports no additional hematologic/lymphatic complaints Allergic/Immunologic: Allergic/Immunologic: Reports no additional allergic/immunologic complaints [facility] Past Medical History Medical History (Updated 07/11/21 @ 20:31 by Leslie Vera NP) Abnormal CT scan, stomach Anxiety Bone lesion Hyperlipidemia Hypertension Shingles Surgical History Surgical History (Updated 07/11/21 @ 20:24 by Leslie Vera NP) H/O lateral meniscus repair of right knee History of bone marrow biopsy History of ear surgery Family History Family History (Updated 07/11/21 @ 20:20 by Leslie Vera NP) Father Lung disease Social History Social History (Updated 07/11/21 @ 20:24 by Leslie Vera NP) Social History: The patient lives with his . Who is the power state attorney for healthcare. He has 2 children. 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
[2021-07-11] MEDS: oxyCODONE HCL (*CRX) 10 MG TAB SR 12HR PO (20:27)
[2021-07-11] MEDS: oxyCODONE HCL (*CRX) 20 MG TAB SR 12HR PO (20:27)
[2021-07-11] MEDS: FAMOTIDINE 20 MG/2 ML VIAL IV PUSH (22:21)
--- NOTE | 2021-07-11 22:44 | ADMGEN ---
This patient, Lavell Cao, was admitted to 3 [facility] Surg Room 313-2119. Patient/family oriented to hospital policies and general routines including ID bracelet, bed and alarms, visiting hours, pain management, procedures, bathroom and other care routines, personal items, smoking policy, room service/diet, and visiting hours. Information on how to activate the Rapid Response Team has been discussed. Patient/Family are encouraged to report perceived risks to care and to ask questions if they do not understand what they are told or what they should do.
[2021-07-12 06:00] VITALS: BP 142/61; PULSE 65; RESP 18; TEMP 36.8; O2SAT 100
[2021-07-12 06:05] LABS: Eosinophils Absolute Auto 0.1 K/mm3 (0-0.3); Hematocrit 26.4 % (42.0-52.0); Hemoglobin 8.5 g/dL (14.0-18.0); Immature Granulocyte Absolute 0.03 K/mm3 (0.00-0.031); Immature Granulocyte Percent A 0.9 % (0-0.5); Lymphocytes Absolute Auto 0.11 K/mm3 (0.9-3.2); Lymphocytes Percent Auto 3.3 % (18.3-44.2); Mean Corpuscular HGB Conc 32.2 g/dl (32-36); Mean Corpuscular Hemoglobin 32.1 pg (26-34); Mean Corpuscular Volume 99.6 fl (80-100); Mean Platelet Volume 9.3 fl (7.4-10.4); Monocytes Percent Auto 0.9 % (2.6-8.5); Neutrophils Percent Auto 90.9 % (45.5-73.1); Platelet Count Result 141 k/mm3 (150-375); Red Blood Count 2.65 M/mm3 (4.6-6.20); Red Cell Distribution Width 15.9 % (11.5-14.5); White Blood Count 3.3 K/mm3 (4.5-10.0)
[2021-07-12 06:21] LABS: Anion Gap 10 mmol/L (8-16); Blood Urea Nitrogen 21 mg/dL (9-20); Calcium 7.6 mg/dL (8.4-10.2); Carbon Dioxide 20 mmol/L (22-30); Chloride 105 mmol/L (98-107); Estimated CRCL calculation 60 ml/min; Estimated Glomerular Filt Rate > 60; Glucose 132 mg/dL (65-110); Phosphorus 3.2 mg/dL (2.5-4.5); Potassium 4.4 mmol/L (3.4-5.0); Sodium 135 mmol/L (137-145)
[2021-07-12 06:48] LABS: Thyroid Stimulating Hormone Reflex 0.396 uIU/mL (0.465-4.68)
[2021-07-12 07:38] LABS: Free T4 Free Thyroxine Reflex 0.99 ng/dL (0.78-2.19)
[2021-07-12 08:52] LABS: Total Triiodothyronine (T3) 0.72 NG/ML (0.97-1.69)
[2021-07-12] MEDS: FAMOTIDINE 20 MG/2 ML VIAL IV PUSH (09:09)
[2021-07-12] MEDS: ENOXAPARIN 40 MG/0.4 ML SYRINGE SUB-Q (09:09)
[2021-07-12] MEDS: ACYCLOVIR 200 MG CAPSULE BY MOUTH ×2 (09:11→10:26)
[2021-07-12] MEDS: FUROSEMIDE 20 MG TABLET PO (09:12)
[2021-07-12] MEDS: FAMOTIDINE 20 MG TABLET 40 MG PO ×2 (09:12→21:26)
[2021-07-12] MEDS: CHOLECALCIFEROL 1,000 UNITS TABLET 2000 UNITS PO (09:12)
[2021-07-12] MEDS: MORPHINE SULFATE (*CRX) 30 MG TABCR PO ×2 (10:30→21:27)
--- NOTE | 2021-07-12 10:38 | PHAR ---
HOME MED VERIFIED = [facility] [id number] REVLIMID 25 MG 1 CAP DAILY X14 DAYS THEN 7 OFF (1 CAP IN PRESCRIPTION BOTTLE)
--- NOTE | 2021-07-12 12:31 | P.PNIM_ITS ---
Progress Note: A&P Assessment and Plan (1) Drug reaction: Code(s): T50.905A - Adverse effect of unspecified drugs, medicaments and biological substances, initial encounter Status: Acute Assessment and Plan: Diffuse head to toe rash. * [place] to be reaction to new chemotherapy medication, Revlimid. Discussed with Dr. Shay who reports rashes, adverse effect with this medication and believes this to be the etiology. * Revlimid has been discontinued. * Also discontinued Bactrim and acyclovir. Both of these medications were started for prophylaxis due to chemotherapy. * Will administer dexamethasone 8 mg q.6 hours * Pepcid and Benadryl * Per Dr. Shay, would like to discharge tomorrow so that he can have his subcutaneous chemotherapy infusion at the outpatient infusion center. 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 Shay. * He was scheduled for 1st radiation appointment on 07/11/2021 but this was not completed as he was sent to the ED for rash evaluation * As above, has been taking oral chemotherapy, Revlimid. This has been discontinued. * Plan for outpatient velcade infusion tomorrow per Dr. Shay * Appreciate oncology consultation * Supportive care. Analgesics available as needed for pain (3) Hypertension: Code(s): I10 - Essential (primary) hypertension Status: Chronic Assessment and Plan: Blood pressure reviewed and has been stable. Last BP 142/61. * Continue amlodipine (4) Acute kidney injury: Code(s): N17.9 - Acute kidney failure, unspecified Status: Acute Assessment and Plan: Resolved. Creatinine has normalized today. (5) Anemia: Code(s): D64.9 - Anemia, unspecified Status: Acute Assessment and Plan: Likely related to myeloma. * H&H stable on review of prior labs (6) Ileus: Code(s): K56.7 - Ileus, unspecified Status: Acute Assessment and Plan: Complains of abdominal bloating. CT abdomen/pelvis on presentation shows dilated colon with large amount retained fecal material and no definite obstruction. Most likely consistent with ileus. * He did have a loose stool following enema. * Repeat soap suds enema today given large amount of retained stool * He denies nausea or vomiting and is tolerating clear liquids. * Dulcolax suppository and MiraLax * Advanced diet as tolerated. * May be related to opioid pain medication which he takes for his bone metastases. Limit narcotics as much as possible and encourage activity. * Abdominal x-ray tomorrow morning (7) Lower extremity edema: Code(s): R60.0 - Localized edema Status: Acute Assessment and Plan: 2+ edema of his bilateral lower extremities * Venous Doppler negative for DVT * May be peripheral edema secondary to CHF. Cardiomegaly noted on CT without signs of congestion. Will check a BNP. Subjective Date/time seen: 07/12/21 12:31 Interval history: Date of service: 07/12/2021 Lavell Cao is a 75-year-old male with a history of hypertension, hyperli pidemia, anxiety, and recent multiple myeloma diagnosis with metastases to spine, recently started on oral chemotherapy and about to begin radiation therapy who is seen in follow-up for a rash. I spent an extensive amount of time talking with the patient and his regarding the rash and his overall diagnoses. Both
--- NOTE | 2021-07-12 12:31 | PM.IMPN ---
Progress Note: A&P Assessment and Plan (1) Drug reaction: Code(s): T50.905A - Adverse effect of unspecified drugs, medicaments and biological substances, initial encounter Status: Acute Assessment and Plan: Diffuse head to toe rash. [place] to be reaction to new chemotherapy medication, Revlimid. Discussed with Dr. Shay who reports rashes, adverse effect with this medication and believes this to be the etiology. Revlimid has been discontinued. Also discontinued Bactrim and acyclovir. Both of these medications were started for prophylaxis due to chemotherapy. Will administer dexamethasone 8 mg q.6 hours Pepcid and Benadryl Per Dr. Shay, would like to discharge tomorrow so that he can have his subcutaneous chemotherapy infusion at the outpatient infusion center. 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 Shay. He was scheduled for 1st radiation appointment on 07/11/2021 but this was not completed as he was sent to the ED for rash evaluation As above, has been taking oral chemotherapy, Revlimid. This has been discontinued. Plan for outpatient velcade infusion tomorrow per Dr. Shay Appreciate oncology consultation Supportive care. Analgesics available as needed for pain (3) Hypertension: Code(s): I10 - Essential (primary) hypertension Status: Chronic Assessment and Plan: Blood pressure reviewed and has been stable. Last BP 142/61. Continue amlodipine (4) Acute kidney injury: Code(s): N17.9 - Acute kidney failure, unspecified Status: Acute Assessment and Plan: Resolved. Creatinine has normalized today. (5) Anemia: Code(s): D64.9 - Anemia, unspecified Status: Acute Assessment and Plan: Likely related to myeloma. H&H stable on review of prior labs (6) Ileus: Code(s): K56.7 - Ileus, unspecified Status: Acute Assessment and Plan: Complains of abdominal bloating. CT abdomen/pelvis on presentation shows dilated colon with large amount retained fecal material and no definite obstruction. Most likely consistent with ileus. He did have a loose stool following enema. Repeat soap suds enema today given large amount of retained stool He denies nausea or vomiting and is tolerating clear liquids. Dulcolax suppository and MiraLax Advanced diet as tolerated. May be related to opioid pain medication which he takes for his bone metastases. Limit narcotics as much as possible and encourage activity. Abdominal x-ray tomorrow morning (7) Lower extremity edema: Code(s): R60.0 - Localized edema Status: Acute Assessment and Plan: 2+ edema of his bilateral lower extremities Venous Doppler negative for DVT May be peripheral edema secondary to CHF. Cardiomegaly noted on CT without signs of congestion. Will check a BNP. Subjective Date/time seen: 07/12/21 12:31 Interval history: Date of service: 07/12/2021 Lavell Cao is a 75-year-old male with a history of hypertension, hyperlipidemia, anxiety, and recent multiple myeloma diagnosis with metastases to spine, recently started on oral chemotherapy and about to begin radiation therapy who is seen in follow-up for a rash. I spent an extensive amount of time talking with the patient and his regarding the rash and his overall diagnoses. Both somewhat poor historians, however his has a journal in which she has detailed all of his symptoms recently. It sounds as though about 2 weeks ago he developed swelling in his ankles. They were monitoring the ankles closely for swelling and about 1 week ago noticed a rash on the ankles. They described a redness and some spots that started on the ankles and has progressively spread diffusely throughout his body. It is nonpruritic. He states that it vázquez
--- NOTE | 2021-07-12 13:01 | PDONCCN ---
HPI - Date of Consult Date/Time: 07/12/21 13:01 Requesting Physician: Tena Polk PA-C Primary Care Provider: Lulu Smith, [facility] - Consult Narrative Reason for consult: Multiple myeloma Narrative: Lavell Cao is a 75 year old male with recent diagnosis of multiple myeloma with bone involvement. He presented with lower back pain. Bone marrow biopsy was done and that confirmed the diagnosis of multiple myeloma. He has diffuse lytic lesions. He was supposed to start radiation therapy yesterday but sent to the ER due to generalized rash. He started treatment with Revlimid on June 29 and developed a rash on July 06. He also started Bactrim on June 29. He denies any fevers and chills. Fortunately his back pain has significantly improved. He is currently taking morphine 30 mg q.12 hours with oxycodone as needed. He denies any bleeding and bruising. He has no other new complaints. Review of Systems - Review of Systems All systems reviewed & are unremarkable except as noted in HPI and bel - Neurologic Reports system reviewed and no additional complaints, except as documented, Reports hearing normal, Denies headache(s), Denies weakness PMF Medical History: Medical History (Last Updated 07/11/21 @ 20:16 by Leslie Vera NP) Abnormal CT scan, stomach Anxiety Bone lesion Hyperlipidemia Hypertension Shingles Surgical History: Surgical History (Last Updated 07/11/21 @ 20:24 by Leslie Vera NP) H/O lateral meniscus repair of right knee History of bone marrow biopsy History of ear surgery Family History: Family History (Last Updated 07/11/21 @ 22:16 by Reva Chahal RN) Father Lung disease Mother CAD (coronary artery disease) - Social History Social History: Social History (Last Updated 07/11/21 @ 20:24 by Leslie Vera NP) Alcohol Use: Alcohol intake: former Drinks per week: 1 Substance Use: Substance use: never Others: Spiritual care concerns: No Smoking Status: Smoking status: Never smoker Meds Home Medications Medication Instructions Recorded Confirmed Type amlodipine 10 mg PO HS 08/01/20 07/11/21 History atorvastatin 20 mg PO HS 08/01/20 07/11/21 History famotidine 40 mg PO DAILY 06/08/21 07/11/21 History lorazepam 1 mg PO DAILY PRN #20 tablet 06/29/21 07/11/21 Rx morphine 30 mg PO Q12H 06/29/21 07/11/21 History polyethylene glycol 3350 [Miralax] 17 g PO DAILY PRN 06/29/21 07/11/21 History acyclovir See Rx Instructions .ROUTE .COMPLEX 07/10/21 07/11/21 History furosemide 20 mg PO DAILY 07/10/21 07/11/21 History oxycodone 30 mg PO Q4H PRN 07/10/21 07/11/21 History sulfamethoxazole-trimethoprim 1 tablet PO Q12H 07/10/21 07/11/21 History [SMZ-TMP DS] cholecalciferol (vitamin D3) 50 mcg PO DAILY 07/11/21 07/11/21 History [Vitamin D3] dexamethasone 40 mg PO WEEKLY 07/11/21 07/11/21 History lenalidomide [Revlimid] See Rx Instructions .ROUTE .COMPLEX 07/11/21 07/11/21 History Allergies Allergy/AdvReac Type Severity Reaction Status Date / Time Sulfa (Sulfonamide Allergy Rash Verified 07/12/21 02:58 Antibiotics) Results - Labs CBC & Chem 7: 07/12/21 05:43 07/12/21 05:43 Labs: Short CBC 07/11/21 07/12/21 Range/Units 13:51 05:43 WBC 4.1 L 3.3 L (4.5-10.0) K/mm3 Hgb 9.5 L 8.5 L (14.0-18.0) g/dL Hct 29.2 L 26.4 L (42.0-52.0) % Plt Count 168 141 L (150-375) k/mm3 BMP 07/11/21 07/12/21 13:51 05:43 Sodium 133 L 135 L Potassium 4.4 4.4 Chloride 102 105 Carbon Dioxide 22 20 L BUN 27 H 21 H Creatinine 1.50 H 1.10 Glucose 113 H 132 H Calcium 8.0 L 7.6 L Liver Function 07/11/21 Range/Units 13:51 Total Bilirubin 0.6 (0.2-1.3) mg/dL AST 22 (17-59) U/L ALT 22 (4-50) U/L Alkaline Phosphatase 151 H (38-126) U/L Albumin 3.7 (3.5-5.1) g/dL Urine 07/11/21 Range/Units 13:52 Urine Color Yellow (Yellow)
[2021-07-12 13:53] LABS: NT Pro B Type Natriuretic Pept 644 pg/mL (5-100)
[2021-07-12 14:37] VITALS: BP 123/58; PULSE 93; RESP 18; TEMP 36.6; O2SAT 99
[2021-07-12] MEDS: polyethylene glycoL 3350 17 GM POWD.PACK PO (16:16)
--- NOTE | 2021-07-12 16:19 | PC.NURSE ---
On 07/12/21, the student, Gisella Cavazos, provided care and completed [facility] documentation on this patient. I have reviewed the student's documentation and agree with the findings.
[2021-07-12] MEDS: BISACODYL 10 MG SUPPOSITORY RECTAL (18:31)
[2021-07-12 20:00] VITALS: PULSE 115; RESP 20; O2SAT 100
[2021-07-12] MEDS: ATORVASTATIN 20 MG TABLET PO (21:26)
[2021-07-12] MEDS: amLODIPine BESYLATE 5 MG TABLET 10 MG PO (21:26)
[2021-07-12 21:37] VITALS: O2SAT 100
[2021-07-12 21:59] VITALS: BP 150/65; PULSE 115; RESP 20; TEMP 36.4; O2SAT 100
[2021-07-13 06:00] VITALS: BP 127/60; PULSE 107; RESP 20; TEMP 36.8; O2SAT 100
[2021-07-13 06:24] LABS: Hematocrit 30.3 % (42.0-52.0); Mean Corpuscular Hemoglobin 31.3 pg (26-34); Mean Platelet Volume 9.2 fl (7.4-10.4); Platelet Count Result 224 k/mm3 (150-375); Red Blood Count 3.19 M/mm3 (4.6-6.20); Red Cell Distribution Width 15.8 % (11.5-14.5); White Blood Count 3.5 K/mm3 (4.5-10.0)
[2021-07-13 06:25] LABS: Anion Gap 12 mmol/L (8-16); Blood Urea Nitrogen 21 mg/dL (9-20); Calcium 7.9 mg/dL (8.4-10.2); Carbon Dioxide 17 mmol/L (22-30); Chloride 104 mmol/L (98-107); Estimated CRCL calculation 73 ml/min; Estimated Glomerular Filt Rate > 60; Glucose 134 mg/dL (65-110); Potassium 4.1 mmol/L (3.4-5.0); Sodium 133 mmol/L (137-145)
[2021-07-13] MEDS: CHOLECALCIFEROL 1,000 UNITS TABLET 2000 UNITS PO (08:41)
[2021-07-13] MEDS: FUROSEMIDE 20 MG TABLET PO (08:42)
[2021-07-13] MEDS: FAMOTIDINE 20 MG TABLET 40 MG PO ×2 (08:42→21:04)
[2021-07-13] MEDS: ENOXAPARIN 40 MG/0.4 ML SYRINGE SUB-Q (08:42)
[2021-07-13] MEDS: polyethylene glycoL 3350 17 GM POWD.PACK PO ×2 (08:43→17:18)
[2021-07-13 13:57] VITALS: BP 141/54; PULSE 83; RESP 14; TEMP 35.8; O2SAT 100
--- NOTE | 2021-07-13 14:24 | PC.NURSE ---
On 07/13/21, the student, Ricarda [facility], provided care and completed [facility] documentation on this patient. I have reviewed the student's documentation and agree with the findings.
--- NOTE | 2021-07-13 16:18 | P.PNIM_ITS ---
Progress Note: A&P Assessment and Plan (1) Drug reaction: Code(s): T50.905A - Adverse effect of unspecified drugs, medicaments and biological substances, initial encounter Status: Acute Assessment and Plan: Diffuse head to toe rash. * [place] to be reaction to new chemotherapy medication, Revlimid, which was started on 06/29/2021. Discussed with Dr. Shay who reports rash is a common adverse effect with this medication and believes this to be the etiology. * Revlimid has been discontinued. * Also discontinued Bactrim and acyclovir. Both of these medications were started for prophylaxis due to chemotherapy. 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 Shay. * He was scheduled for 1st radiation appointment on 07/11/2021 but this was not completed as he was sent to the ED for rash evaluation * As above, has been taking oral chemotherapy, Revlimid. This has been discontinued. * Scheduled to have outpatient velcade infusion today [facility] per Dr. Shay. However given his ileus, I spoke with Dr. Shay who felt the infusion could be delayed until tomorrow to allow for further inpatient monitoring of ileus to prevent hospital readmission and further delay of chemo and radiation. Appointment has been rescheduled for tomorrow at 1:00 p.m. * Appreciate oncology consultation * Supportive care. Analgesics available as needed for pain (3) Hypertension: Code(s): I10 - Essential (primary) hypertension Status: Chronic Assessment and Plan: Blood pressure reviewed and has been stable. Last BP 141/54. * Continue amlodipine (4) Acute kidney injury: Code(s): N17.9 - Acute kidney failure, unspecified Status: Acute Assessment and Plan: Resolved. Creatinine has normalized. (5) Anemia: Code(s): D64.9 - Anemia, unspecified Status: Acute Assessment and Plan: Likely related to myeloma. * H&H stable on review of prior labs (6) Ileus: Code(s): K56.7 - Ileus, unspecified Status: Acute Assessment and Plan: Complained of abdominal bloating. CT abdomen/pelvis on presentation shows dilated colon with large amount of retained fecal material and no definite obstruction. [place] to be consistent with ileus * He has had return of bowel function following soapsuds enema with approximately 3-4 loose stools subsequently. Also had improved symptoms with improved bloating * No nausea or vomiting and is tolerating liquids. Advanced to low-fiber diet * Continue MiraLax and Colace b.i.d. * Most likely related to opioid pain medication which he takes for his bone metastases. Limit narcotics as much as possible * Obstructive series abdominal x-ray this morning showed mildly dilated small and large bowel consistent with adynamic ileus with small volume of stool in the colon * Repeat abdominal x-ray tomorrow morning. Plan for discharge tomorrow for outpatient infusion if remaining stable or improved * Frequent ambulation, increase activity as tolerated (7) Lower extremity edema: Code(s): R60.0 - Localized edema Status: Acute Assessment and Plan: 1-2+ edema of his bilateral lower extremities * Venous Doppler negative for DVT * Elevate extremities Subjective Date/akil
--- NOTE | 2021-07-13 16:18 | PM.IMPN ---
Progress Note: A&P Assessment and Plan (1) Drug reaction: Code(s): T50.905A - Adverse effect of unspecified drugs, medicaments and biological substances, initial encounter Status: Acute Assessment and Plan: Diffuse head to toe rash. [place] to be reaction to new chemotherapy medication, Revlimid, which was started on 06/29/2021. Discussed with Dr. Shay who reports rash is a common adverse effect with this medication and believes this to be the etiology. Revlimid has been discontinued. Also discontinued Bactrim and acyclovir. Both of these medications were started for prophylaxis due to chemotherapy. Continue dexamethasone 8 mg q.6 hours Pepcid and Benadryl Overall improvement in rash today (2) Metastatic multiple myeloma to bone: Code(s): C90.00 - Multiple myeloma not having achieved remission Status: Acute Assessment and Plan: Managed by Dr. Shay. He was scheduled for 1st radiation appointment on 07/11/2021 but this was not completed as he was sent to the ED for rash evaluation As above, has been taking oral chemotherapy, Revlimid. This has been discontinued. Scheduled to have outpatient velcade infusion [facility] per Dr. Shay. However given his ileus, I spoke with Dr. Shay who felt the infusion could be delayed until tomorrow to allow for further inpatient monitoring of ileus to prevent hospital readmission and further delay of chemo and radiation. Appointment has been rescheduled for tomorrow at 1:00 p.m. Appreciate oncology consultation Supportive care. Analgesics available as needed for pain (3) Hypertension: Code(s): I10 - Essential (primary) hypertension Status: Chronic Assessment and Plan: Blood pressure reviewed and has been stable. Last BP 141/54. Continue amlodipine (4) Acute kidney injury: Code(s): N17.9 - Acute kidney failure, unspecified Status: Acute Assessment and Plan: Resolved. Creatinine has normalized. (5) Anemia: Code(s): D64.9 - Anemia, unspecified Status: Acute Assessment and Plan: Likely related to myeloma. H&H stable on review of prior labs (6) Ileus: Code(s): K56.7 - Ileus, unspecified Status: Acute Assessment and Plan: Complained of abdominal bloating. CT abdomen/pelvis on presentation shows dilated colon with large amount of retained fecal material and no definite obstruction. [place] to be consistent with ileus He has had return of bowel function following soapsuds enema with approximately 3-4 loose stools subsequently. Also had improved symptoms with improved bloating No nausea or vomiting and is tolerating liquids. Advanced to low-fiber diet Continue MiraLax and Colace b.i.d. Most likely related to opioid pain medication which he takes for his bone metastases. Limit narcotics as much as possible Obstructive series abdominal x-ray this morning showed mildly dilated small and large bowel consistent with adynamic ileus with small volume of stool in the colon Repeat abdominal x-ray tomorrow morning. Plan for discharge tomorrow for outpatient infusion if remaining stable or improved Frequent ambulation, increase activity as tolerated (7) Lower extremity edema: Code(s): R60.0 - Localized edema Status: Acute Assessment and Plan: 1-2+ edema of his bilateral lower extremities Venous Doppler negative for DVT Elevate extremities Subjective Date/time seen: 07/13/21 16:18 Interval history: Date of service: 07/13/2021 Lavell Cao is a 75-year-old male with a history of hypertension, hyperlipidemia, anxiety, and recent multiple myeloma diagnosis with metastases to spine, recently started on oral chemotherapy and about to begin radiation therapy who is seen in follow-up for drug reaction. He is doing better today. He feels his rash is slightly improved. He feels his lower extremity edema is unchanged
[2021-07-13 20:00] VITALS: PULSE 83; RESP 18; O2SAT 97
[2021-07-13] MEDS: DOCUSATE SODIUM 100 MG CAPSULE PO (21:04)
[2021-07-13] MEDS: ATORVASTATIN 20 MG TABLET PO (21:04)
[2021-07-13] MEDS: amLODIPine BESYLATE 5 MG TABLET 10 MG PO (21:05)
[2021-07-13 22:00] VITALS: BP 151/60; PULSE 83; RESP 18; TEMP 36.2; O2SAT 97
[2021-07-14 06:00] VITALS: BP 145/61; PULSE 85; RESP 18; TEMP 36; O2SAT 98
[2021-07-14] MEDS: BISACODYL 10 MG SUPPOSITORY RECTAL (06:02)
[2021-07-14 06:31] LABS: Hemoglobin 8.8 g/dL (14.0-18.0); Mean Corpuscular HGB Conc 32.6 g/dl (32-36); Mean Corpuscular Hemoglobin 31.5 pg (26-34); Mean Corpuscular Volume 96.8 fl (80-100); Mean Platelet Volume 9.2 fl (7.4-10.4); Platelet Count Result 200 k/mm3 (150-375); Red Blood Count 2.79 M/mm3 (4.6-6.20); Red Cell Distribution Width 15.8 % (11.5-14.5); White Blood Count 2.2 K/mm3 (4.5-10.0)
[2021-07-14 06:54] LABS: Anion Gap 8 mmol/L (8-16); Blood Urea Nitrogen 20 mg/dL (9-20); Calcium 7.6 mg/dL (8.4-10.2); Carbon Dioxide 20 mmol/L (22-30); Chloride 106 mmol/L (98-107); Estimated CRCL calculation 81 ml/min; Estimated Glomerular Filt Rate > 60; Glucose 114 mg/dL (65-110); Potassium 4.2 mmol/L (3.4-5.0); Sodium 134 mmol/L (137-145)
[2021-07-14 08:00] VITALS: PULSE 85; RESP 18; O2SAT 98
[2021-07-14] MEDS: ENOXAPARIN 40 MG/0.4 ML SYRINGE SUB-Q (10:28)
[2021-07-14] MEDS: FUROSEMIDE 20 MG TABLET PO (10:28)
[2021-07-14] MEDS: CHOLECALCIFEROL 1,000 UNITS TABLET 2000 UNITS PO (10:28)
[2021-07-14] MEDS: DOCUSATE SODIUM 100 MG CAPSULE PO (10:29)
[2021-07-14] MEDS: FAMOTIDINE 20 MG TABLET 40 MG PO (10:29)
[2021-07-14] MEDS: polyethylene glycoL 3350 17 GM POWD.PACK PO (10:29)
--- NOTE | 2021-07-14 11:36 | PM.DS ---
DS: Admitting Diagnosis Discharge Date 07/14/2021 Admitting Diagnosis Drug reaction DS: Discharge Diagnosis Discharge Diagnosis (1) Drug reaction: Code(s): T50.905A - Adverse effect of unspecified drugs, medicaments and biological substances, initial encounter Status: Acute Assessment and Plan: Presented with diffuse head to toe rash. [place] to be reaction to new chemotherapy medication, Revlimid, which was started on 06/29/2021. Discussed with Dr. Shay who reports rash is a common adverse effect with this medication and believes this to be the etiology. Revlimid was discontinued. Also discontinued Bactrim and acyclovir. Both of these medications were started for prophylaxis due to chemotherapy. Received IV dexamethasone 8 mg q.6 hours which did help alleviate the rash, along with Pepcid and Benadryl Continue Pepcid with Benadryl as needed, though the rash remained non pruritic. He remains on weekly dexamethasone as part of his cancer treatment regimen. He has follow-up appointment with Dr. Shay next week who can monitor the rash. 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 Shay. He was scheduled for 1st radiation appointment on 07/11/2021 but this was not completed as he was sent to the ED for rash evaluation As above, has been taking oral chemotherapy, Revlimid. This has been discontinued. He was discharged on 07/14 and went directly to the outpatient infusion center to have chemotherapy infusion. He was seen in consultation by Oncology during his hospitalization (3) Ileus: Code(s): K56.7 - Ileus, unspecified Status: Acute Assessment and Plan: Complained of abdominal bloating. CT abdomen/pelvis on presentation shows dilated colon with large amount of retained fecal material and no definite obstruction. [place] to be consistent with ileus He had return of bowel function following soapsuds enema with approximately 3-4 loose stools subsequently. Also had improvement in bloating and abdominal discomfort No nausea or vomiting. He was able to tolerate clear liquids and was advanced to a low-fiber diet. Able to tolerate this without difficulty. Repeat abdominal x-ray showed persistent dilated large and small bowel consistent with ileus. Small-bowel follow-through showed transit time from stomach to proximal colon of 30 minutes with improvement in small bowel distension and overall improvement if ileus Most likely related to opioid pain medication which he takes for his bone metastases. Limit narcotics as much as possible Initiated on outpatient bowel regimen. MiraLax b.i.d. and Colace b.i.d. Instructed that he could go down to MiraLax once a day when bowel function is regular to prevent diarrhea Frequent ambulation encouraged (4) Hypertension: Code(s): I10 - Essential (primary) hypertension Status: Chronic Assessment and Plan: Blood pressure reviewed and was stable during hospitalization. Continue home amlodipine (5) Acute kidney injury: Code(s): N17.9 - Acute kidney failure, unspecified Status: Acute Assessment and Plan: Resolved. Creatinine normalized with gentle IV fluids. (6) Anemia: Code(s): D64.9 - Anemia, unspecified Status: Acute Assessment and Plan: Likely related to myeloma. H&H stable on review of prior labs (7) Lower extremity edema: Code(s): R60.0 - Localized edema Status: Acute Assessment and Plan: 1-2+ edema of his bilateral lower extremities. Venous Doppler negative for DVT. Elevate extremities. Continue home furosemide 20 mg daily DS: Summary Hospital Course Hospital Course: Date of admission: 07/11/2021 Date of discharge: 07/14/2021 randall Cao is a 75-year-old male with a history of hypertension, hyperlipidemia, anxiety,
== END 2021-07-14 12:25 | disposition home health service (06) | DRG 607 ==
LOC: ANHED 12:44 → ANH3MEDSUR 18:44
PROVIDERS: Nurse Practitioner; Physician Assistant; Admitting Provider Family Medicine; Emergency Provider Emergency Medicine; PCP Nurse Practitioner Adult Health; Visit Provider Internal Medicine
DX: L27.0 Generalized skin eruption due to drugs and medicaments taken internally (principal); C90.00 Multiple myeloma not having achieved remission; N17.9 Acute kidney failure, unspecified; K56.7 Ileus, unspecified; T45.1X5A Adverse effect of antineoplastic and immunosuppressive drugs, initial encounter; F41.9 Anxiety disorder, unspecified; E78.5 Hyperlipidemia, unspecified; I10 Essential (primary) hypertension; R60.0 Localized edema; B02.9 Zoster without complications; D64.9 Anemia, unspecified; Z66 Do not resuscitate; Z79.899 Other long term (current) drug therapy
CPT/HCPCS: 36415; 74018; 74019; 74176; 74250; 77280; 80048; 80053; 81003; 83735; 83880; 84100; 84439; 84443; 84480; 85025; 85027; 85652; 86140; 93970; 96361; 96365; 96372; 96375; 96376; 96401; 99285; A9270; G0378; J0690; J1100; J1650; J7030; J9041

== ENCOUNTER 2021-10-12 10:02 | Outpatient (CLI) | payer MEDICARE, SELFPAY ==
--- NOTE | ~2021-10-12 | XR_ITS ---
EXAMINATION: XR bone survey comp/metastic DATE: 10/12/2021 10:57 INDICATION: Multiple myeloma, not having achieved remission. TECHNIQUE: 34 views from a skeletal survey were obtained. COMPARISON: Skeletal survey 06/09/2021, CT abdomen and pelvis 07/11/21 FINDINGS: There are multiple lytic lesions in the pelvis with areas of endosteal scalloping. There ar e multiple lytic lesions in the thoracic and lumbar spine. Again seen are chronic pathologic compress ion fractures of L3 and T11. IMPRESSION: 1. Ill-defined lytic lesions in the pelvis and thoracic and lumbar spine without worsening from 07/11, consistent with multiple myeloma. Reviewed, dictated and finalized at location A. R [employer] IMPRESSION: 1. Ill-defined lytic lesions in the pelvis and thoracic and lumbar spine withou t worsening from 07/11/2021, consistent with multiple myeloma.
== END 2021-10-12 10:03 | disposition home or self-care (01) ==
LOC: ANHIMG 10:08
PROVIDERS: PCP Nurse Practitioner Adult Health; Visit Provider Internal Medicine Hematology & Oncology
DX: C90.00 Multiple myeloma not having achieved remission (principal); M89.9 Disorder of bone, unspecified
CPT/HCPCS: 77075

== ENCOUNTER 2021-10-20 09:48 | Outpatient (CLI) | payer MEDICARE, SELFPAY ==
[2021-10-20 10:35] LABS: Prothrombin Time 12.6 Seconds (11.1-14.7)
[2021-10-20 10:36] LABS: Partial Thromboplastin Time 23.5 SECONDS (22.3-36.8)
== END 2021-10-20 09:49 | disposition home or self-care (01) ==
PROVIDERS: PCP Nurse Practitioner Adult Health; Visit Provider Surgery
DX: Z01.818 Encounter for other preprocedural examination (principal); C90.00 Multiple myeloma not having achieved remission
CPT/HCPCS: 36415; 85610; 85730

== ENCOUNTER 2021-10-24 01:18 | Day surgery (SDC) | payer MEDICARE, SELFPAY ==
[2021-10-18 11:08] VITALS: BMI 32.3
--- NOTE | 2021-10-18 11:18 | PC.NURSE ---
Report to the Outpatient Waiting Room, entrance under the green pavilion located off [facility], at time _1200__ on date _10/24/21__. OR Time: __2 PM . - You will be asked a series of questions to screen for COVID 19 for your protection. - A mask is required within the hospital. - No visitors are allowed at this time. Preoperative COVID Testing Requirements: _NONE_ Patients may have clear liquids (water, carbonated beverages, clear teas, apple juice) until 3 hours prior to surgery with a maximum of 20 ounces. (1100 AM) - No food from midnight until time of surgery Take the following medications with a SIP of water the morning of surgery: _PAIN PILL IF NEEDED_ Medications to discontinue per physician _ALL VITAMINS AND SUPPLEMENTS 3 DAYS PRIOR TO SURGERY_ Date to take last dose____10/20/21 Please no make-up, nail bahamian, hairspray, perfume, deodorant, or body powder the day of surgery. No jewelry (including any body piercings) or valuables the day of surgery, leave them at home. Please take a shower or bath the night before, or the morning of, surgery with an antibacterial soap. Wear comfortable, loose fitting clothing. Children are encouraged to wear pajamas. - Jewelry must be removed prior to entering the operating room. Rings and piercings that are not removed may be cut off. - The hospital will not accept responsibility for valuables. - Please leave all valuables, including medications, at home the day of surgery. If you are going home after surgery, a licensed service parts driver must drive you home. - NO public transportation without another adult. - We recommend that an adult stay with you for 24 hours following discharge. - We also recommend that you do not drive, make important decision, drink alcoholic beverages, or take any drugs that were not prescribed by your health care provider for at least 24 hours after your discharge time. Follow any additional instructions given to you from your surgeon. Telephone instructions given to __PT and asked if any additional questions and then verbalized understanding. Patient advised to call surgeon office or pre surgery nurse liaisonPEDRO [phone] if any additional questions.
--- NOTE | ~2021-10-24 | XR_ITS ---
EXAMINATION: XR fl guide central line place DATE: 10/24/2021 14:30 INDICATION: Port catheter insertion. TECHNIQUE: A fluoroscopic image of the right upper chest was obtained during procedure performed by Derek Lagunas. Radiologist was not present for the imaging or procedure. The amount of fluoroscopy time used during this procedure was 0.2 minutes. COMPARISON: 10/12/2021 FINDINGS: Right internal jugular central venous catheter with distal tip extending into the caudal superior yesi a cava and beyond the inferior margin of the [id number]. No pneumothorax visualized right lung. IMPRESSION: 1. Fluoroscopy utilized during right internal jugular central venous port catheter placement. See pro cedure note for further detail. Reviewed, dictated and finalized at location A. LATOR TESTER IMPRESSION: 1. Fluoroscopy utilized during right internal jugular central venous port mikayla ter placement. See procedure note for further detail.
--- NOTE | ~2021-10-24 | XR_ITS ---
EXAMINATION: XR chest port-a-cath/central DATE: 10/24/2021 14:54 INDICATION: Port catheter insertion TECHNIQUE: frontal view of the chest was obtained. COMPARISON: 10/12/2021 FINDINGS: Right internal jugular central venous port catheter with distal tip at the superior cavoatrial juncti on. Patchy and linear opacities in the bilateral mid and lower lung zones. No pleural effusion or pne umothorax. The cardiomediastinal silhouette is normal. IMPRESSION: 1. Opacities in the bilateral mid and lower lung zones which could represent atelectasis versus pneum onia. Reviewed, dictated and finalized at location A. [employer] IMPRESSION: 1. Opacities in the bilateral mid and lower lung zones which could represent at electasis versus pneumonia.
--- NOTE | 2021-10-24 08:34 | WPDANESEPPF ---
Anes - Initial Pre Proc Eval Procedure: Operation Date: 10/24/21 13:30 Proposed Procedures p Insertion Jas Cath - Kofi Lagunas DO Date/Time: 10/24/21 08:34 Surgeon: Kofi Lagunas DO Pre Op Diagnosis: multiple myeloma w/o remission Patient Data Age: 75 Gender: M Height: 1.78 m Weight: 102.27 kg Allergies Allergy/AdvReac Type Severity Reaction Status Date / Time Sulfa (Sulfonamide Allergy Rash Verified 10/24/21 11:38 Antibiotics) Home Medications Medication Instructions Recorded Confirmed Type amlodipine 10 mg PO HS 08/01/20 10/24/21 History atorvastatin 20 mg PO HS 08/01/20 10/24/21 History polyethylene glycol 3350 [Miralax] 17 g PO DAILY PRN 06/29/21 10/24/21 History furosemide 20 mg PO DAILY 07/10/21 10/24/21 History dexamethasone 40 mg PO WEEKLY 07/11/21 10/24/21 History acyclovir 200 mg PO BID 09/28/21 10/20/21 History aspirin 81 mg PO DAILY 09/28/21 10/24/21 History calcium carbonate [Calcium 500] 500 mg PO BID 09/28/21 10/24/21 History cholecalciferol (vitamin D3) 25 mcg PO DAILY 09/28/21 10/24/21 History [Vitamin D3] famotidine 40 mg PO DAILY 09/28/21 10/20/21 History multivitamin 1 tablet PO DAILY 09/28/21 10/24/21 History oxycodone-acetaminophen 1 tablet PO TID PRN 09/28/21 10/24/21 History Patient hx anesthesia problems: none Family hx anesthesia problems: none Results Review: All pre-operative results and documents have been reviewed as part of the pre-operative evaluation. [facility] Past Medical History Medical History (Updated 10/24/21 @ 08:35 by James Gallagher DO) Abnormal CT scan, stomach Anxiety Bone lesion Chronic, continuous use of opioids GERD (gastroesophageal reflux disease) Hyperlipidemia Hypertension Multiple myeloma Shingles Surgical History Surgical History (Updated 07/20/21 @ 11:25 by Joseph Dwyer MD) H/O lateral meniscus repair of right knee History of bone marrow biopsy History of ear surgery Family History Family History (Updated 07/11/21 @ 22:16 by Reva Chahal RN) Father Lung disease Mother CAD (coronary artery disease) Social History Social History (Updated 07/11/21 @ 20:24 by Leslie Vera NP) Social History: The patient lives with his . Who is the power corporate attorney for healthcare. He has 2 children. The patient is retired from [employer] when he worked in [employer]. The patient's lifelong nonsmoker does not use any alcohol marijuana or illicit drugs. Code status DNR Smoking status: Never smoker Second hand tobacco smoke exposure: No Alcohol intake: former Drinks per week: 1 Substance use: never Substance use type: does not use Living arrangements: with family Spiritual care concerns: No Anes - Eval Final PreProcedure Day of Procedure 10/24/21 08:34 Patient weight: obese Heart: regular rate and rhythm Lungs: clear to auscultation and normal air movement Airway: Mallampati scale class II Neurological: alert and oriented Last oral intake: >/= 8 hours ASA classification: III Emergent: no Anesthetic plan: proceed Anesthesia type and monitoring: general GIVS and standard monitoring Results Review: All pre-operative results and documents have been reviewed as part of the pre-operative evaluation. Informed Consent: The patient's anesthetic plan and its attendant risks and benefits were discussed with the patient/family/POA. Questions were solicited and answers provided to the satisfaction of the patient/family/POA.
[2021-10-24] MEDS: LACTATED RINGERS 1,000 ML 30 ML IV CONT (12:14)
[2021-10-24 12:16] VITALS: BP 162/65; PULSE 76; RESP 16; TEMP 36.5; O2SAT 100
--- NOTE | 2021-10-24 12:38 | WPDHPUPDATE1 ---
History and Physical Update Update Date/Time: 10/24/21 12:38 History and Physical has been reviewed, including an updated exam of the patient. There are NO changes in the patient's condition. Risks, benefits, and alternatives have been discussed and questions answered. Patient agrees to proceed with procedure.
--- NOTE | 2021-10-24 12:38 | PM.IMHP ---
H&P: HPI History of Present Illness Date/Time: 10/24/21 12:38 Chief Complaint: Multiple Myeloma Narrative: 75 yo man presents for Port placement. He was diagnosed with multiple myeloma and has been undergoing chemo and radiation. He has been getting chemo through peripheral IV but access has become more difficult lately. Review of Systems Review of Systems: All systems reviewed & are unremarkable except as noted in HPI and below Constitutional: Constitutional: Denies chills, Denies fever(s), Denies headache(s) and Denies weight loss Eyes: Eyes: Denies change in vision ENT: Denies dizziness, Denies headache(s), Denies neck mass and Denies throat swelling Cardiovascular: Cardiovascular: Denies chest pain, Denies lightheadedness and Denies dyspnea Respiratory: Respiratory: Denies cough, Denies dyspnea and Denies wheezing Gastrointestinal: Gastrointestinal: Denies abdominal pain, Denies change in bowel habits, Denies nausea and Denies vomiting Genitourinary: Genitourinary: Denies hematuria and Denies dysuria Musculoskeletal: Musculoskeletal: Reports as per HPI Integumentary/Breasts: Skin/Breast: Reports as per HPI Neurologic: Denies dizziness and Denies headache(s) Allergic/Immunologic: Allergic/Immunologic: Denies throat swelling and Denies wheezing PMFSH Past Medical History Medical History (Updated 10/24/21 @ 08:35 by James Gallagher DO) Abnormal CT scan, stomach Anxiety Bone lesion Chronic, continuous use of opioids GERD (gastroesophageal reflux disease) Hyperlipidemia Hypertension Multiple myeloma Shingles Surgical History Surgical History (Updated 07/20/21 @ 11:25 by Joseph Dwyer MD) H/O lateral meniscus repair of right knee History of bone marrow biopsy History of ear surgery Family History Family History (Updated 07/11/21 @ 22:16 by Reva Chahal RN) Father Lung disease Mother CAD (coronary artery disease) Social History Social History (Updated 07/11/21 @ 20:24 by Leslie Vera NP) Social History: The patient lives with his . Who is the power explosives mixer operator for healthcare. He has 2 children. The patient is retired from [employer] when he worked in [employer]. The patient's lifelong nonsmoker does not use any alcohol marijuana or illicit drugs. Code status DNR Smoking status: Never smoker Second hand tobacco smoke exposure: No Alcohol intake: former Drinks per week: 1 Substance use: never Substance use type: does not use Living arrangements: with family Spiritual care concerns: No Meds Home Medications and Allergies Home Medications Medication Instructions Recorded Confirmed Type amlodipine 10 mg PO HS 08/01/20 10/24/21 History atorvastatin 20 mg PO HS 08/01/20 10/24/21 History polyethylene glycol 3350 [Miralax] 17 g PO DAILY PRN 06/29/21 10/24/21 History furosemide 20 mg PO DAILY 07/10/21 10/24/21 History dexamethasone 40 mg PO WEEKLY 07/11/21 10/24/21 History acyclovir 200 mg PO BID 09/28/21 10/20/21 History aspirin 81 mg PO DAILY 09/28/21 10/24/21 History calcium carbonate [Calcium 500] 500 mg PO BID 09/28/21 10/24/21 History cholecalciferol (vitamin D3) 25 mcg PO DAILY 09/28/21 10/24/21 History [Vitamin D3] famotidine 40 mg PO DAILY 09/28/21 10/20/21 History multivitamin 1 tablet PO DAILY 09/28/21 10/24/21 History oxycodone-acetaminophen 1 tablet PO TID PRN 09/28/21 10/24/21 History Allergies Allergy/AdvReac Type Severity Reaction Status Date / Time Sulfa (Sulfonamide Allergy Rash Verified 10/24/21 11:38 Antibiotics) Vital Signs Vital Signs - 24 hr 10/24/21 12:16 Temperature 36.5 C Pulse Rate 76 Respiratory Rate 16 Blood Pressure 162/65 H Pulse Oximetry 100 Exam Const: General: no acute distress and alert Orientation/consciousness: patient oriented x3 HENMT: Head: normocephalic and atraumatic Ears: hearing grossly normal bilaterally General nose exam: Normal nares present Mouth: Y
[2021-10-24] MEDS: KETOROLAC 15 MG/ML VIAL (*BKC) IV PUSH (13:07)
[2021-10-24] MEDS: ceFAZolin 2 GM/D5W 50 ML 2 GM/50 ML BAG IVPB (13:53)
[2021-10-24] MEDS: LIDO 1%/EPINEPHRINE 1:100,000 50 ML VIAL 20 ML INFILTRATE (14:11)
[2021-10-24] MEDS: HEPARIN SODIUM, PORCINE 10,000 UNITS/10 ML VIAL 3 UNITS IRRIGATION (14:12)
[2021-10-24] MEDS: HEPARIN SODIUM 5,000 UNITS/ML VIAL 5000 UNITS IRRIGATION (14:13)
--- NOTE | 2021-10-24 14:38 | W.PM.PROC2 ---
Procedure Note - Detailed Date of Procedure 10/24/21 Pre-op Diagnosis multiple myeloma w/o remission Post-op Diagnosis same Procedure Performed Right Internal Jugular tunneled Port-a-Cath placement using ultrasound and fluoroscopic guidance Surgeon Kofi Lagunas, DO Anesthesia MAC and local (0.5% bupivicaine with epinephrine) Indications This is a 75-year-old man who is currently in treatment for multiple myeloma. He was doing chemotherapy through peripheral IVs initially, but now he is having difficulty with IV access. He is in need of port placement to continue treatment. Decision was made to proceed with Port-A-Cath placement. Findings Right internal jugular Port-A-Cath was placed under ultrasound and fluoroscopic guidance. SonoSite ultrasound was used to identify the right internal jugular vein. This was visualized as a compressible vessel just lateral to the pulsatile carotid artery. The 18 gauge introducer needle was advanced under ultrasound guidance. Dark nonpulsatile blood was aspirated. Fluoroscopy was then used to guide advancement of the guidewire followed by dilator and sheath. The final fluoroscopic images demonstrated the catheter tip in the distal SVC and no kinks along its path. Description of Procedure Procedure as well as risks, benefits, and alternatives were discussed with patient. Written consent was obtained and placed in chart prior to procedure. Patient was brought back to surgical suite. Was placed supine on operating table. Time-out was done confirm patient procedure. IV sedation was then administered by the Anesthesia Department. The chest and neck area was prepped and draped in sterile fashion using chlorhexidine prep. Patient was placed in Trendelenburg position. SonoSite ultrasound was used to identify the right internal jugular vein. It was visualized as a compressible vessel just lateral to the carotid artery. 1% lidocaine with epinephrine was infiltrated directly over the vessel under ultrasound guidance. An 18 gauge introducer needle was then advanced under ultrasound guidance directly into the right internal jugular vein. Dark nonpulsatile blood was aspirated. A 0.035 in guidewire was then advanced through the needle under fluoroscopic guidance. The guidewire was visualized advancing all the way down into the superior vena cava. 1% lidocaine with epinephrine was then infiltrated on the right anterior chest and along the tract up to the guidewire insertion site. A 3 cm incision was made with a 15 blade scalpel, and electrocautery was then used for dissection down through the subcutaneous tissue to the pectoral fascia. A pocket was created just inferior to the incision using blunt dissection. A small vidal incision was then also made at the insertion site at the neck. The tunneler was then advanced from the chest incision up to the neck incision and the catheter tubing was brought up through this tract. The dilator and sheath were then advanced over the guidewire under fluoroscopic visualization. The dilator and guidewire were then removed leaving the sheath in place. The catheter tubing was then advanced through the sheath under fluoroscopic guidance. The sheath was unsnapped and carefully peeled away. The catheter tubing was released underneath the neck incision. Fluoroscopy was used to confirm proper placement of the catheter tubing and no kinks along its path. The catheter was then cut to proper length and secured to the port. The port was then accessed with a Mohamud needle and aspirated and flushed with heparinized saline. The port function with ease. The port was then hep-locked with Hep-Lock solution. The port was then placed within the pocket that was created, and was secured to the fascia using 3 0 Prolene simple interrupted sutures. The patient was flattened out in bed. Lula's fascia was reapproximated using 3 0 Vicryl simple interrupted sutures. The skin of the incisions was then approxima
[2021-10-24 14:45] VITALS: BP 147/44; PULSE 85; RESP 16; O2SAT 93
--- NOTE | 2021-10-24 14:51 | SUR.PHASEII ---
PORTABLE CXR DONE.
[2021-10-24 15:15] VITALS: BP 136/80; PULSE 85; RESP 16; O2SAT 97
[2021-10-24 15:32] VITALS: BP 157/49; PULSE 73; RESP 16
== END 2021-10-24 15:34 | disposition home or self-care (01) ==
PROVIDERS: PCP Nurse Practitioner Adult Health; Visit Provider Surgery
PROC: (CPT 36561; principal; 2021-10-24 13:30)
DX: C90.00 Multiple myeloma not having achieved remission (principal); F41.9 Anxiety disorder, unspecified; K21.9 Gastro-esophageal reflux disease without esophagitis; I10 Essential (primary) hypertension; E78.5 Hyperlipidemia, unspecified; Z79.82 Long term (current) use of aspirin; E66.9 Obesity, unspecified; Z68.32 Body mass index [BMI] 32.0-32.9, adult
CPT/HCPCS: 36561; 77001; C1788; J0690; J1644; J1885; J2704; J3010; J7030; J7120

== ENCOUNTER 2021-12-14 10:19 | Outpatient (CLI) | payer MEDICARE, SELFPAY ==
--- NOTE | ~2021-12-14 | US_ITS ---
US venous doppler [facility] DATE: 12/14/2021 10:48 INDICATION: Left leg pain and swelling TECHNIQUE: Real-time and color flow imaging and Doppler analysis of the veins of the left lower extre mity COMPARISON: 07/11/2021 is duplex examination of both lower extremities, reported FINDINGS: The greater saphenous vein is patent. There is spontaneous and phasic flow and normal augme ntation and color flow signal and normal compression of the veins of the left leg. IMPRESSION: Negative examination; no evidence of deep venous thrombosis of left leg Reviewed, dictated and finalized at Location A. Reviewed, dictated and finalized at location A.
== END 2021-12-14 10:20 | disposition home or self-care (01) ==
LOC: ANHIMG 10:22
PROVIDERS: PCP Nurse Practitioner Adult Health; Visit Provider Internal Medicine Hematology & Oncology
DX: M79.89 Other specified soft tissue disorders (principal)
CPT/HCPCS: 93971

== ENCOUNTER 2022-01-15 13:16 | Inpatient (IN) | payer MEDICARE, SELFPAY ==
[2022-01-15] VITALS (10 sets, daily range): BP systolic 122–178; BP diastolic 64–94; PULSE 90–99; RESP 14–18; TEMP 36.4–38.1; O2SAT 97–100
--- NOTE | ~2022-01-15 | US_ITS ---
EXAMINATION: US venous doppler [facility] DATE: 01/15/2022 15:31 INDICATION: Bilateral lower limb swelling TECHNIQUE: Lorenzo scale images without and with compression and Doppler images of the bilateral lower e xtremity veins were obtained. COMPARISON: 12/14/2021 FINDINGS: The right common femoral vein, profunda femoral vein, femoral vein, popliteal vein, peroneal trunk, p osterior tibial veins, and greater saphenous vein are patent. The left common femoral vein, profunda femoral vein, femoral vein, popliteal vein, peroneal trunk, po sterior tibial veins, and greater saphenous vein are patent. IMPRESSION: 1. Patent bilateral lower extremity veins. No evidence of deep venous thrombosis. Reviewed, dictated and finalized at location A. IMPRESSION: 1. Patent bilateral lower extremity veins. No evidence of deep venous thrombosi s.
--- NOTE | ~2022-01-15 | CT_ITS ---
EXAMINATION: CT abdomen pelvis wo con DATE: 01/19/2022 09:29 INDICATION: Pelvic hematoma, multiple myeloma TECHNIQUE: Computed tomography (CT) of the abdomen and pelvis was performed without intravenous contr ast. The dose-length product (DLP) was 1131.61 mGy-cm. Automated exposure control and iterative recon struction technique were employed. COMPARISON: 01/17/2022 FINDINGS: Minimal dependent atelectasis is present in the lung bases. The heart size is normal. Cysts of the liver measure up to 2.8 cm. The spleen, pancreas, gallbladder, and adrenal glands are normal. Cysts of the right kidney measure up to 8 mm. The previously described left pelvic hematoma is not s ignificantly changed. No interval expansion or evidence of new clot are identified. There is persiste nt mass effect on the distal left ureter with mild hydroureter. No pathologically enlarged abdominal or pelvic lymph nodes are identified. There is no free intraperitoneal gas or evidence of bowel obstr uction. Again noted are multiple lytic lesions of the spine and pelvis with multiple pathologic fract ures, consistent with history of multiple myeloma. IMPRESSION: 1. Stable left pelvic hematoma. Reviewed, dictated and finalized at location A.
--- NOTE | ~2022-01-15 | XR_ITS ---
EXAMINATION: XR chest 2V DATE: 01/15/2022 15:56 INDICATION: Lower leg swelling. TECHNIQUE: Frontal and lateral views of the chest were obtained. COMPARISON: Chest single view 10/24/2021, CT abdomen and pelvis 07/11/2021 FINDINGS: There is mild atelectasis in right lower lung zone. No pleural effusion or pneumothorax. Th e heart size is normal. There is a right internal jugular port with tip at superior cavoatrial juncti on. There is a healing fracture of anterior right fifth rib. IMPRESSION: 1. Mild atelectasis in right lower lung zone. Reviewed, dictated and finalized at location B.
--- NOTE | ~2022-01-15 | CT_ITS ---
EXAMINATION: CT abdomen pelvis w con INDICATION: Lower leg swelling, multiple myeloma TECHNIQUE: Computed tomographic images of the abdomen and pelvis were obtained after the administrati on of 100 cc of Omnipaque 350 intravenous contrast. The dose-length product (DLP) was 1407.28 mGy-cm. Automated exposure control and iterative reconstruction technique were employed. COMPARISON: 07/11/2021 FINDINGS: Minimal dependent atelectasis is present in the lung bases. The heart size is normal. Cysts of the liver measure up to 2.8 cm. The spleen, pancreas, gallbladder, and adrenal glands are normal. Cysts of the kidneys measure up to 8 mm on the right. There is an approximately 13.1 x 5.4 cm left p elvic hematoma surrounding the left common iliac vein and artery. No definite active contrast extrava sation is identified. The adjacent iliac veins are not well seen. There is mass effect on the left ur eter with mild resulting left hydronephrosis. No pathologically enlarged abdominal or pelvic lymph no eliseo are identified. There is no free intraperitoneal gas or evidence of bowel obstruction. There are multiple lytic lesions in the spine and pelvis, consistent with history of multiple myeloma. There ar e pathologic fractures of the T11, T12, L3, and L4 vertebral bodies. IMPRESSION: 1. Right pelvic hematoma measuring approximately 13.1 x 5.4 cm with mass effect on the left ureter an d mild left hydronephrosis. 2. Multiple osseous lytic lesions, consistent with history of multiple myeloma. Reviewed, dictated and finalized at location A. IMPRESSION: 1. Right pelvic hematoma measuring approximately 13.1 x 5.4 cm with mass effect on the left ureter and mild left hydronephrosis. 2. Multiple osseous lytic lesions, consistent with history of multiple myeloma.
--- NOTE | 2022-01-15 13:54 | ECG_ITS ---
Measurements Intervals [place] Rate: 88 P: -47 AK: 165 QRS: 20 QRSD: 80 T: 30 QT: 342 QTc: 414 Interpretive Statements SINUS OR ECTOPIC ATRIAL RHYTHM DELAYED PRECORDIAL R/S TRANSITION NONSPECIFIC T-WAVE ABNORMALITY- INFERIOR LEADS BORDERLINE ECG Electronically Signed On 01-15-2022 14:26:05 CDT by Alexandre Brewer D.O.
--- NOTE | 2022-01-15 14:37 | ED.GENADULT ---
HPI - General Adult General Chief complaint: Extremity Problem,Nontraumatic Stated complaint: swelling to legs, ?reaction to medicine Time Seen by Provider: 01/15/22 14:21 Source: RN notes reviewed History of Present Illness HPI narrative: Patient presents emergency department from home for left leg swelling. Patient states he has had swelling of his left leg for the past 1 month that is been progressively worsening states is associated with a wound over the medial aspect of the ankle and lower leg with some surrounding erythema that has clear drainage at times he states that he is currently being treated for cancer and is on chemo by Dr. Shay however they stopped his chemo medicine approximate month ago because he thought this could be contributing his leg swelling states he is now started noticing swelling in his right leg as well states he has had work-ups in the past that have been negative denies any fevers or chills chest pain shortness of breath or any other symptoms Related Data Home Medications Medication Instructions Recorded Confirmed amlodipine 10 mg PO HS 08/01/20 01/04/22 atorvastatin 20 mg PO HS 08/01/20 01/04/22 polyethylene glycol 3350 [Miralax] 17 g PO DAILY PRN 06/29/21 01/04/22 furosemide 20 mg PO DAILY 07/10/21 01/04/22 dexamethasone 20 mg PO WEEKLY 07/11/21 01/04/22 acyclovir 200 mg PO BID 09/28/21 01/04/22 aspirin 81 mg PO DAILY 09/28/21 01/04/22 calcium carbonate [Calcium 500] 500 mg PO BID 09/28/21 01/04/22 cholecalciferol (vitamin D3) 25 mcg PO DAILY 09/28/21 01/04/22 [Vitamin D3] famotidine 40 mg PO DAILY 09/28/21 01/04/22 multivitamin 1 tablet PO DAILY 09/28/21 01/04/22 oxycodone-acetaminophen 1 tablet PO TID PRN 09/28/21 01/04/22 ondansetron HCl 8 mg PO Q6-8H PRN 12/14/21 01/04/22 Allergies Allergy/AdvReac Type Severity Reaction Status Date / Time Sulfa (Sulfonamide Allergy Severe Rash Verified 01/15/22 14:51 Antibiotics) Review of Systems Review of Systems: Gen.: Denies fevers or chills Eyes: Denies eye pain or visual change ENT: Denies congestion Respiratory: Denies shortness of breath or cough CV: Denies chest pain or palpitations GI: Denies abdominal pain nausea, emesis or diarrhea denies burning, urgency, frequency or hematuria Musculoskeletal: Ports leg edema Neuro: Denies numbness, tingling, weakness or focal weakness Skin: Denies rash Except as documented, all other systems reviewed and negative [facility] Past Medical History Medical History Abnormal CT scan, stomach Anxiety Bone lesion Chronic, continuous use of opioids GERD (gastroesophageal reflux disease) Hyperlipidemia Hypertension Multiple myeloma Shingles Surgical History Surgical History (Updated 07/20/21 @ 11:25 by Joseph Dwyer MD) H/O lateral meniscus repair of right knee History of bone marrow biopsy History of ear surgery Family History Family History (Updated 07/11/21 @ 22:16 by Reva Chahal RN) Father Lung disease Mother CAD (coronary artery disease) Social History Social History Social History: The patient lives with his . Who is the power collections attorney for healthcare. He has 2 children. 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 The patient's lifelong nonsmoker does not use any alcohol marijuana or illicit drugs. Code status DNR Smoking status: Never smoker Second hand tobacco smoke exposure: No Alcohol intake: former Drinks per week: 1 Substance use: never Substance use type: does not use Spiritual care concerns: No Exam Narrative: APPEARANCE: No acute distress, nontoxic, resting in bed EYES: EOMI HEENT: Normocephalic, atraumatic, OMM RESPIRATORY: No respiratory distress Clear to auscultation bilaterally with no rhonchi wheezing or rales. CARDIOVASCULAR: Regular rate and rhythm without murmurs rubs or ga
[2022-01-15 14:48] LABS: Basophils Percent Auto 0.6 % (0.2-1.2); Eosinophils Absolute Auto 0.1 K/mm3 (0-0.3); Hematocrit 35.1 % (42.0-52.0); Hemoglobin 11.1 g/dL (14.0-18.0); Immature Granulocyte Absolute 0.01 K/mm3 (0.00-0.031); Immature Granulocyte Percent A 0.2 % (0-0.5); Lymphocytes Absolute Auto 0.27 K/mm3 (0.9-3.2); Lymphocytes Percent Auto 5.3 % (18.3-44.2); Mean Corpuscular HGB Conc 31.6 g/dl (32-36); Mean Corpuscular Hemoglobin 32.9 pg (26-34); Mean Corpuscular Volume 104.2 fl (80-100); Mean Platelet Volume 8.6 fl (7.4-10.4); Monocytes Absolute Auto 0.5 K/mm3 (0.1-0.6); Monocytes Percent Auto 9.7 % (2.6-8.5); Neutrophils Absolute Auto 4.3 K/mm3 (1.3-6.7); Neutrophils Percent Auto 83.2 % (45.5-73.1); Platelet Count Result 172 k/mm3 (150-375); Red Blood Count 3.37 M/mm3 (4.6-6.20); Red Cell Distribution Width 13.9 % (11.5-14.5); White Blood Count 5.1 K/mm3 (4.5-10.0)
[2022-01-15 14:57] LABS: INR 1.4; Prothrombin Time 16.8 Seconds (11.1-14.7)
[2022-01-15 14:58] LABS: Lactic Acid Reflex 1.6 mmol/L (0.7-2.0); Partial Thromboplastin Time 29.1 SECONDS (22.3-36.8)
[2022-01-15 14:59] LABS: Alanine Aminotransferase 19 U/L (4-50); Albumin Level 4.8 g/dL (3.5-5.1); Alkaline Phosphatase 64 U/L (38-126); Anion Gap 8 mmol/L (8-16); Aspartate Amino Transferase 28 U/L (17-59); Bilirubin,Total 0.7 mg/dL (0.2-1.3); Blood Urea Nitrogen 20 mg/dL (9-20); Calcium 9.5 mg/dL (8.4-10.2); Carbon Dioxide 25 mmol/L (22-30); Chloride 106 mmol/L (98-107); Estimated CRCL calculation 45 ml/min; Estimated Glomerular Filt Rate 45; Glucose 104 mg/dL (65-110); Potassium 3.9 mmol/L (3.4-5.0); Sodium 139 mmol/L (137-145)
[2022-01-15 15:09] LABS: NT Pro B Type Natriuretic Pept 90 pg/mL (5-100)
[2022-01-15 15:11] LABS: Troponin I < 0.012 ng/mL (0.000-0.034)
--- NOTE | 2022-01-15 18:50 | ADMGEN ---
This patient, Lavell Cao, was admitted to [facility] Surg Room 330-01. Patient/family oriented to hospital policies and general routines including ID bracelet, bed and alarms, visiting hours, pain management, procedures, bathroom and other care routines, personal items, smoking policy, room service/diet, and visiting hours. Information on how to activate the Rapid Response Team has been discussed. Patient/Family are encouraged to report perceived risks to care and to ask questions if they do not understand what they are told or what they should do.
--- NOTE | 2022-01-15 21:08 | PM.IMHP ---
H&P: HPI History of Present Illness Date/Time: Patient was placed observation status for expected length of stay less than 23 hours for management, will plan to re-evaluate tomorrow for improvement. 01/15/22 21:08 Chief Complaint: Left lower extremity edema Narrative: Mr. Cao is a 76-year-old gentleman who presented to the emergency room with complaints of left lower extremity swelling. Patient states that he has had increasing edema to his left lower extremity for the last month. Patient states that his oncologist who he sees for multiple and Thompson had stopped his chemotherapy drugs thinking that this edema was secondary to the medication. Patient states he has continued to have increasing edema and has also had heat and erythema to left lower extremity. Patient states he was on oral Keflex and he had no improvement with this antibiotic. Patient denies any fever or chills at home. Patient denies any chest pain, shortness breast, lightheadedness, dizziness, syncopal, or near syncopal episodes. Patient states that his oncologist had considered sending him to [facility] for evaluation of this edema and erythema. Patient states he did have a similar episode last year when he was supposed to be starting radiation. Patient states that there are is significantly erythema can raised area to his level left medial ankle that has been there for approximately 1 month also. Patient states that he has had some occasional clear drainage from this area. Patient has had venous Dopplers on multiple occasions and he states they have all been negative. Patient did undergo venous Doppler today that showed no evidence of deep vein thrombosis. Patient has a known history of multiple myeloma, dyslipidemia, hypertension, GERD, and shingles. Patient states he has been taking all medications without any difficulty at home. Review of Systems Review of Systems: A 12 point review of systems was completed patient all pertinent positive and negative per HPI the remainder are unremarkable. [facility] Past Medical History Medical History (Updated 01/15/22 @ 21:17 by Karlene Pichardo APRN) Abnormal CT scan, stomach Anxiety Bone lesion Chronic, continuous use of opioids GERD (gastroesophageal reflux disease) Hyperlipidemia Hypertension Multiple myeloma Shingles Surgical History Surgical History (Updated 01/15/22 @ 21:17 by Karlene Pichardo APRN) H/O lateral meniscus repair of right knee History of bone marrow biopsy History of ear surgery Family History Family History (Updated 01/15/22 @ 19:17 by Ann Ramirez RN) Father Lung disease CHF (congestive heart failure) Mother CAD (coronary artery disease) Social History Social History Social History: The patient lives with his . Who is the power mergers and acquisitions attorney for healthcare. He has 2 children. The patient is retired from [employer] when he worked in [employer]. The patient's lifelong nonsmoker does not use any alcohol marijuana or illicit drugs. Code status DNR Smoking status: Never smoker Second hand tobacco smoke exposure: No Alcohol intake: former Drinks per week: 1 Substance use: never Substance use type: does not use Spiritual care concerns: Yes Meds Home Medications and Allergies Home Medications Medication Instructions Recorded Confirmed Type amlodipine 10 mg PO HS 08/01/20 01/15/22 History atorvastatin 20 mg PO HS 08/01/20 01/15/22 History polyethylene glycol 3350 [Miralax] 17 g PO DAILY PRN 06/29/21 01/15/22 History furosemide 20 mg PO DAILY 07/10/21 01/15/22 History dexamethasone 20 mg PO WEEKLY 07/11/21 01/15/22 History acyclovir 200 mg PO BID 09/28/21 01/15/22 History calcium carbonate [Calcium 500] 500 mg PO BID 09/28/21 01/15/22 History cholecalciferol (vitamin D3) 25 mcg PO HS 09/28/21 01/15/22 History [Vitamin D3] famotidine 40 mg PO DAILY 09/28/21 01/15/22 History m
[2022-01-15] MEDS: SODIUM CHLORIDE 0.9% IV 1,000 ML 100 ML IV CONT (22:28)
[2022-01-16] MEDS: ATORVASTATIN 20 MG TABLET PO ×2 (00:43→20:07)
[2022-01-16] MEDS: CHOLECALCIFEROL 1,000 UNITS TABLET 1000 UNITS PO ×2 (00:43→20:07)
[2022-01-16] MEDS: RIVAROXABAN 10 MG TABLET PO (00:43)
[2022-01-16] MEDS: amLODIPine BESYLATE 5 MG TABLET 10 MG PO ×2 (00:43→20:07)
[2022-01-16 05:52] VITALS: BP 129/52; PULSE 85; RESP 18; TEMP 36.9; O2SAT 96
[2022-01-16 06:16] LABS: Basophils Percent Auto 0.9 % (0.2-1.2); Eosinophils Absolute Auto 0.1 K/mm3 (0-0.3); Eosinophils Percent Auto 2.5 % (0-4.4); Hemoglobin 9.2 g/dL (14.0-18.0); Immature Granulocyte Absolute 0.02 K/mm3 (0.00-0.031); Immature Granulocyte Percent A 0.6 % (0-0.5); Lymphocytes Absolute Auto 0.37 K/mm3 (0.9-3.2); Lymphocytes Percent Auto 11.7 % (18.3-44.2); Mean Corpuscular HGB Conc 31.7 g/dl (32-36); Mean Corpuscular Hemoglobin 32.9 pg (26-34); Mean Corpuscular Volume 103.6 fl (80-100); Monocytes Absolute Auto 0.5 K/mm3 (0.1-0.6); Monocytes Percent Auto 15.2 % (2.6-8.5); Neutrophils Absolute Auto 2.2 K/mm3 (1.3-6.7); Neutrophils Percent Auto 69.1 % (45.5-73.1); Platelet Count Result 158 k/mm3 (150-375); White Blood Count 3.2 K/mm3 (4.5-10.0)
[2022-01-16 06:29] LABS: Alanine Aminotransferase 14 U/L (4-50); Albumin Level 3.5 g/dL (3.5-5.1); Alkaline Phosphatase 51 U/L (38-126); Anion Gap 5 mmol/L (8-16); Aspartate Amino Transferase 22 U/L (17-59); Bilirubin,Total 0.6 mg/dL (0.2-1.3); Blood Urea Nitrogen 17 mg/dL (9-20); Calcium 8.3 mg/dL (8.4-10.2); Carbon Dioxide 23 mmol/L (22-30); Chloride 109 mmol/L (98-107); Estimated CRCL calculation 56 ml/min; Estimated Glomerular Filt Rate 59; Glucose 94 mg/dL (65-110); Potassium 3.5 mmol/L (3.4-5.0); Sodium 137 mmol/L (137-145)
[2022-01-16] MEDS: ACETAMINOPHEN 500 MG TABLET 1000 MG PO ×2 (08:23→17:31)
[2022-01-16] MEDS: FUROSEMIDE 20 MG TABLET PO (08:26)
[2022-01-16] MEDS: FAMOTIDINE 20 MG TABLET 40 MG PO (08:26)
[2022-01-16] MEDS: CALCIUM CARBONATE (TUMS) 500 MG (200 MG ELEMENTAL) PO ×2 (08:26→17:29)
[2022-01-16] MEDS: MULTIVITAMINS THERAPEUTIC TAB (*BKC) 1 TABLET PO (08:27)
[2022-01-16] MEDS: ACYCLOVIR 200 MG CAPSULE PO ×2 (08:27→17:29)
[2022-01-16] MEDS: SODIUM CHLORIDE 0.9% IV 1,000 ML 100 ML IV CONT ×2 (10:53→20:07)
--- NOTE | 2022-01-16 11:20 | PM.IMPN ---
Progress Note: A&P Assessment and Plan (1) Cellulitis of left leg: Code(s): L03.116 - Cellulitis of left lower limb Status: Acute (2) Port-A-Cath in place: Code(s): Z95.828 - Presence of other vascular implants and grafts Status: Acute (3) Multiple myeloma: Code(s): C90.00 - Multiple myeloma not having achieved remission Status: Acute (4) Lower extremity edema: Code(s): R60.0 - Localized edema Status: Acute Additional Plan 01/15/22 Patient was placed on Keflex as an outpatient had no improvement in in the edema and erythema have his left lower extremity. At this point time will place patient on vancomycin and cefepime. Will culture the raised erythemic area if there is any drainage and will deescalate antibiotics as able to. Oncology has been consult and do appreciate any further recommendations. Patient's kidney function is above baseline. Will gently hydrate patient and continue to monitor laboratories. 01/16/22 pt doing ok no overnight events US negative for DVT spoke w surgery will need to hold OAC x bx cont abx cont supportive care am labs Subjective Date/time seen: 01/16/22 11:20 sitting in bed bedside, reports long history of LLE redness and swelling that previously improved but has returned and now on the back of his head too. to be biopsied per Dr Shay Exam Narrative: Constitutional: no acute distress. alert and oriented x3 HEENT: Moist mucous membranes. No scleral icterus. Neck: no JVD Lungs: Lung sounds are clear to auscultation bilaterally. No accessory muscle use. No rhonchi, rales, or wheezes noted. Cardiovascular: regular rate and rhythm. S1-S2 Abdomen: Soft, round, and nontender. Extremities: Patient has 3 to 4+ edema to left lower extremity. There is erythema and warmth noted to left lower extremity. Patient has a raised area of erythema to his medial malleolus of the left lower extremity. Skin: No rashes or lesions. Warm and dry. Skin is intact. scalp w 2cm x 2cmx 2.5cm dark red growth.soft nonfluctuant Neurological: No focal neurological deficits. Cranial nerves II-XII grossly intact. Psychiatric: Cooperative, appropriate mood, and affect Objective Data Vital Signs Vital Signs: Vital Signs - 24 hr 01/15/22 13:51 01/15/22 14:36 01/15/22 15:29 Temperature 97.5 F L 98.2 F Pulse Rate 98 91 94 Respiratory Rate 18 16 14 Blood Pressure 141/67 H 143/66 H 157/70 H Pulse Oximetry 100 98 100 01/15/22 16:31 01/15/22 17:49 01/15/22 18:42 Temperature Pulse Rate 90 98 97 Respiratory Rate 18 18 16 Blood Pressure 154/68 H 140/94 H 147/67 H Pulse Oximetry 98 98 97 01/15/22 18:58 01/15/22 20:48 01/15/22 22:00 Temperature 97.8 F 100.6 F H Pulse Rate 99 91 Respiratory Rate 18 18 Blood Pressure 178/71 H 122/64 Pulse Oximetry 99 97 98 01/15/22 22:17 01/16/22 05:52 Temperature 98.5 F 98.5 F Pulse Rate 85 Respiratory Rate 18 Blood Pressure 129/52 L Pulse Oximetry 96 Intake/Output Intake/Output: Intake & Output 01/13/22 01/14/22 01/15/22 01/16/22 23:59 23:59 23:59 23:59 Intake Total 100 1989 Balance 100 1989 Meds/Results Medications: Active Medications Generic Name Dose Route Start Last Admin Trade Name Michell PRN Reason Stop Dose Admin Acetaminophen 1,000 mg 01/16/22 01:24 01/16/22 08:23 Acetaminophen 500 Mg Tablet PO 1,000 mg Q8H PRN Administration Pain Rated 1-3 Acyclovir 200 mg 01/16/22 09:00 01/16/22 08:27 Acyclovir 200 Mg Capsule PO 200 mg BID ANTOINETTE Administration Amlodipine Besylate 10 mg 01/15/22 23:55 01/16/22 00:43 Amlodipine Besylate 5 Mg Tablet PO 10 mg HS ANTOINETTE Administration Atorvastatin Calcium 20 mg 01/15/22 23:55 01/16/22 00:43 Atorvastatin 20 Mg Tablet PO 20 mg HS ANTOINETTE Administration Calcium Carbonate 200 mg 01/16/22 09:00 01/16/22 08:26 Calcium Carbonate (Tums) 500 Mg (200 Mg Elemental) PO 200 mg BID [facility] A
[2022-01-16 14:00] VITALS: BP 136/57; PULSE 85; RESP 18; TEMP 37.6; O2SAT 97
--- NOTE | 2022-01-16 14:35 | PM.CNGS ---
Assessment and Plan Assessment and plan (1) Skin lesion of left leg: Code(s): L98.9 - Disorder of the skin and subcutaneous tissue, unspecified Status: Acute Assessment and Plan: Patient has a large 11 x 9.5 cm irregular raised lesion of the left lower medial leg and another 5 x 4 cm raised lesion of the right posterior scalp that has rapidly grown over the past month. The appearance of the lesions are concerning and we have been consulted to obtain a biopsy. There is no active drainage to obtain a culture, and although the lesion is raised, it is firm and there is no area of fluctuance that would warrant incision and drainage at this time. Both lesions are large enough that we do not feel they could be completely excised due to the inability to approximate the skin edges for closure after the excision. May need to consider doing an incisional biopsy of the edge of one or both lesions to spring repairer helper hand in diagnosis. Dr. Thomas will try to discuss the case with Dr. Shay to decide on how to proceed with the biopsy. If there is any purulent drainage found during surgery, this could be cultured at that time. He is also taking Xarelto, which we will hold for now to allow time for this to wear off prior to surgery. I discussed the plan of care with the patient and answered his questions. Dr. Thomas will have further discussions with the patient regarding how we plan to proceed once he has spoke with Dr. Shay. (2) Scalp lesion: Code(s): L98.9 - Disorder of the skin and subcutaneous tissue, unspecified Status: Acute Assessment and Plan: See plan above. (3) Cellulitis of left leg: Code(s): L03.116 - Cellulitis of left lower limb Status: Acute Assessment and Plan: Left leg swelling and only mild erythema but no warmth. He is afebrile. Continue IV antibiotics and monitor closely. (4) Lower extremity edema: Code(s): R60.0 - Localized edema Status: Acute Assessment and Plan: Unclear etiology. Venous dopplers negative for DVT. Possible cellulitis, but edema extends all the way up the thigh without any erythema or warmth in the upper leg. Elevate lower legs. (5) Metastatic multiple myeloma to bone: Code(s): C90.00 - Multiple myeloma not having achieved remission Status: Acute Assessment and Plan: Diagnosed with multiple myeloma with bone lesions last fall and undergoing chemotherapy treatment per Dr. Shay. Chemotherapy reportedly has been on hold for about 1 month. Oncology has been consulted, will await their recommendations. (6) Port-A-Cath in place: Code(s): Z95.828 - Presence of other vascular implants and grafts Status: Acute Assessment and Plan: Right IJ port-a-cath in place for treatment. Not currently accessed. (7) Hypertension: Code(s): I10 - Essential (primary) hypertension Status: Chronic (8) Anticoagulated by anticoagulation treatment: Code(s): Z79.01 - intermediate accountant (current) use of anticoagulants Status: Acute Assessment and Plan: This is a the prophylactic dose, but unclear why he is on this. Will stop Xarelto for possible biopsy in the next few days. Additional Plan I have discussed the patient's case and plan of care with Dr. Thomas. Thank you for allowing us to see the patient in consultation and we will continue to follow along with you. History of Present Illness Consult details Consult date: 01/16/22 Reason for consult: other (Scalp lesion, left lower leg lesion, request for biopsy) Requesting physician: Emerson Shay MD Narrative: This is a 76-year-old male with a known history of multiple myeloma diagnosed around May of 2021, who has undergone radiation treatment to the spine for painful disease and has been undergoing chemotherapy by Dr. Shay. He has noticed two lesions, one on his scalp and one on his left lower leg, that started about a month ago. He report
--- NOTE | 2022-01-16 19:09 | PDONCCN ---
HPI - Date of Consult Date/Time: 01/16/22 19:09 Requesting Physician: Kasia Hernandez MD Primary Care Provider: Lulu Smith, [employer]MENT MECH[employer]IC - Consult Narrative Reason for consult: Multiple myeloma Narrative: Lavell Cao is a 76 year old male with stage III multiple myeloma. Patient was on chemotherapy treatment with Velcade, direct trauma mab and dexamethasone. Treatment was on hold for last 4 weeks duration due to development of left lower extremity edema and cellulitis with raised skin nodules. He came into the hospital with worsening of the left lower extremity edema and pain. He denies any fevers and chills. He denies any bleeding and bruising. He also developed prominent lesion on the back of the scalp recently with nodularity. He denies any purulent discharge from that lesion. Denies any other complaints. Review of Systems - Review of Systems All systems reviewed & are unremarkable except as noted in HPI and bel - Neurologic Reports system reviewed and no additional complaints, except as documented, Reports numbness (bilateral feet and ankles over the past month), Reports tingling (bilateral feet and ankles over the past month), Denies focal weakness PMFSH Medical History: Medical History (Last Reviewed 01/16/22 @ 14:38 by KORINA Stafford) Abnormal CT scan, stomach Anxiety Bone lesion Chronic, continuous use of opioids GERD (gastroesophageal reflux disease) Hyperlipidemia Hypertension Multiple myeloma Shingles Surgical History: Surgical History (Last Reviewed 01/16/22 @ 14:35 by KORINA Stafford) H/O lateral meniscus repair of right knee History of bone marrow biopsy History of ear surgery Family History: Family History (Last Reviewed 01/16/22 @ 14:35 by KORINA Stafford) Father Lung disease CHF (congestive heart failure) Mother CAD (coronary artery disease) - Social History Social History: Social History (Last Reviewed 01/16/22 @ 14:36 by KORINA Stafford) Alcohol Use: Alcohol intake: former Drinks per week: 1 Substance Use: Substance use: never Substance use type: does not use Others: Spiritual care concerns: Yes Smoking Status: Smoking status: Never smoker Second hand tobacco smoke exposure: No Meds Home Medications Medication Instructions Recorded Confirmed Type amlodipine 10 mg PO HS 08/01/20 01/15/22 History atorvastatin 20 mg PO HS 08/01/20 01/15/22 History polyethylene glycol 3350 [Miralax] 17 g PO DAILY PRN 06/29/21 01/15/22 History furosemide 20 mg PO DAILY 07/10/21 01/15/22 History dexamethasone 20 mg PO WEEKLY 07/11/21 01/15/22 History acyclovir 200 mg PO BID 09/28/21 01/15/22 History calcium carbonate [Calcium 500] 500 mg PO BID 09/28/21 01/15/22 History cholecalciferol (vitamin D3) 25 mcg PO HS 09/28/21 01/15/22 History [Vitamin D3] famotidine 40 mg PO DAILY 09/28/21 01/15/22 History multivitamin 1 tablet PO DAILY 09/28/21 01/15/22 History acetaminophen 1,000 mg PO Q8H PRN 01/15/22 01/15/22 History pot zdga-xschnctx-ecnp-manpoly 1 ea MUCOUS MEMBRANE Q4H PRN 01/15/22 01/15/22 History [OraMagicRx] rivaroxaban [Xarelto] 10 mg PO 1700 01/15/22 01/15/22 History Allergies Allergy/AdvReac Type Severity Reaction Status Date / Time Sulfa (Sulfonamide Allergy Severe Rash Verified 01/15/22 14:51 Antibiotics) Results - Labs CBC & Chem 7: 01/16/22 05:29 01/16/22 05:29 Labs: Short CBC 01/16/22 Range/Units 05:29 WBC 3.2 L (4.5-10.0) K/mm3 Hgb 9.2 L (14.0-18.0) g/dL Hct 29.0 L (42.0-52.0) % Plt Count 158 (150-375) k/mm3 BMP 01/16/22 05:29 Sodium 137 Potassium 3.5 Chloride 109 H Carbon Dioxide 23 BUN 17 Creatinine 1.20 Glucose 94 Calcium 8.3 L Liver Function 01/16/22 Range/Units 05:29 Total Bilirubin 0.6 (0.2-1.3) mg/dL AST 22 (17-59) U/L ALT 14 (4-50) U/L Alkaline Phosphatase 51 (38-126) U/L Albumin 3
[2022-01-16 22:00] VITALS: BP 143/60; PULSE 86; RESP 18; TEMP 36.8; O2SAT 96
[2022-01-17 04:19] LABS: SARS-CoV-2 RNA PCR Negative
[2022-01-17 05:50] VITALS: BP 145/68; PULSE 93; RESP 20; TEMP 36.1; O2SAT 98
[2022-01-17 06:36] LABS: Basophils Percent Auto 0.6 % (0.2-1.2); Eosinophils Absolute Auto 0.1 K/mm3 (0-0.3); Eosinophils Percent Auto 3.3 % (0-4.4); Hematocrit 30.8 % (42.0-52.0); Hemoglobin 9.8 g/dL (14.0-18.0); Immature Granulocyte Absolute 0.01 K/mm3 (0.00-0.031); Immature Granulocyte Percent A 0.3 % (0-0.5); Lymphocytes Absolute Auto 0.26 K/mm3 (0.9-3.2); Lymphocytes Percent Auto 7.2 % (18.3-44.2); Mean Corpuscular HGB Conc 31.8 g/dl (32-36); Mean Corpuscular Volume 103.7 fl (80-100); Mean Platelet Volume 8.6 fl (7.4-10.4); Monocytes Absolute Auto 0.5 K/mm3 (0.1-0.6); Monocytes Percent Auto 13.1 % (2.6-8.5); Neutrophils Absolute Auto 2.7 K/mm3 (1.3-6.7); Neutrophils Percent Auto 75.5 % (45.5-73.1); Platelet Count Result 152 k/mm3 (150-375); Red Blood Count 2.97 M/mm3 (4.6-6.20); Red Cell Distribution Width 13.8 % (11.5-14.5); White Blood Count 3.6 K/mm3 (4.5-10.0)
[2022-01-17 06:51] LABS: Alanine Aminotransferase 15 U/L (4-50); Albumin Level 3.6 g/dL (3.5-5.1); Alkaline Phosphatase 48 U/L (38-126); Anion Gap 6 mmol/L (8-16); Aspartate Amino Transferase 25 U/L (17-59); Bilirubin,Total 0.5 mg/dL (0.2-1.3); Blood Urea Nitrogen 12 mg/dL (9-20); Calcium 7.9 mg/dL (8.4-10.2); Carbon Dioxide 22 mmol/L (22-30); Chloride 111 mmol/L (98-107); Estimated CRCL calculation 61 ml/min; Estimated Glomerular Filt Rate > 60; Glucose 102 mg/dL (65-110); Magnesium 2.1 mg/dL (1.6-2.3); Potassium 3.9 mmol/L (3.4-5.0); Sodium 139 mmol/L (137-145)
[2022-01-17 08:30] LABS: INR 1.2; Prothrombin Time 14.6 Seconds (11.1-14.7)
[2022-01-17 08:31] LABS: Partial Thromboplastin Time 30.5 SECONDS (22.3-36.8)
[2022-01-17 08:46] VITALS: O2SAT 97
--- NOTE | 2022-01-17 10:21 | PM.IMPN ---
Progress Note: A&P Assessment and Plan (1) Cellulitis of left leg: Code(s): L03.116 - Cellulitis of left lower limb Status: Acute (2) Port-A-Cath in place: Code(s): Z95.828 - Presence of other vascular implants and grafts Status: Acute (3) Multiple myeloma: Code(s): C90.00 - Multiple myeloma not having achieved remission Status: Acute (4) Lower extremity edema: Code(s): R60.0 - Localized edema Status: Acute Additional Plan 01/15/22 Patient was placed on Keflex as an outpatient had no improvement in in the edema and erythema have his left lower extremity. At this point time will place patient on vancomycin and cefepime. Will culture the raised erythemic area if there is any drainage and will deescalate antibiotics as able to. Oncology has been consult and do appreciate any further recommendations. Patient's kidney function is above baseline. Will gently hydrate patient and continue to monitor laboratories. 01/16/22 pt doing ok no overnight events US negative for DVT spoke w surgery will need to hold OAC x bx cont abx cont supportive care am labs 01/17/[address] abd pelvis w contrast lasix 20mg -> 40mg cont current care PT/OT Subjective Date/time seen: 01/17/22 10:21 doing ok friend of 40yrs and at bedside complains of swelling of LE L>R Exam Narrative: Constitutional: no acute distress. alert and oriented x3 HEENT: Moist mucous membranes. No scleral icterus. Neck: no JVD Lungs: Lung sounds are clear to auscultation bilaterally. No accessory muscle use. No rhonchi, rales, or wheezes noted. Cardiovascular: regular rate and rhythm. S1-S2 Abdomen: Soft, round, and nontender. Extremities: Patient has 3 to 4+ edema to left lower extremity. There is erythema and warmth noted to left lower extremity. Patient has a raised area of erythema to his medial malleolus of the left lower extremity. Skin: No rashes or lesions. Warm and dry. Skin is intact. scalp w 2cm x 2cmx 2.5cm dark red growth.soft nonfluctuant Neurological: No focal neurological deficits. Cranial nerves II-XII grossly intact. Psychiatric: Cooperative, appropriate mood, and affect Objective Data Vital Signs Vital Signs: Vital Signs - 24 hr 01/16/22 14:00 01/16/22 22:00 01/17/22 05:50 Temperature 99.6 F 98.3 F 97 F L Pulse Rate 85 86 93 Respiratory Rate 18 18 20 Blood Pressure 136/57 L 143/60 H 145/68 H Pulse Oximetry 97 96 98 01/17/22 08:46 Temperature Pulse Rate Respiratory Rate Blood Pressure Pulse Oximetry 97 Intake/Output Intake/Output: Intake & Output 01/14/22 01/15/22 01/16/22 01/17/22 23:59 23:59 23:59 23:59 Intake Total 100 5020 440 Balance 100 5020 440 Meds/Results Medications: Active Medications Generic Name Dose Route Start Last Admin Trade Name Jacobq PRN Reason Stop Dose Admin Acetaminophen 1,000 mg 01/16/22 01:24 01/16/22 17:31 Acetaminophen 500 Mg Tablet PO 1,000 mg Q8H PRN Administration Pain Rated 1-3 Acyclovir 200 mg 01/16/22 09:00 01/16/22 17:29 Acyclovir 200 Mg Capsule PO 200 mg BID ANTOINETTE Administration Amlodipine Besylate 10 mg 01/15/22 23:55 01/16/22 20:07 Amlodipine Besylate 5 Mg Tablet PO 10 mg HS ANTOINETTE Administration Atorvastatin Calcium 20 mg 01/15/22 23:55 01/16/22 20:07 Atorvastatin 20 Mg Tablet PO 20 mg HS ANTOINETTE Administration Calcium Carbonate 200 mg 01/16/22 09:00 01/16/22 17:29 Calcium Carbonate (Tums) 500 Mg (200 Mg Elemental) PO 200 mg BID ANTOINETTE Administration Dexamethasone 20 mg 01/18/22 08:00 Dexamethasone 4 Mg Tablet PO Th ANTOINETTE Famotidine 40 mg 01/16/22 09:00 01/16/22 08:26 Famotidine 20 Mg Tablet PO 40 mg DAILY ANTOINETTE Administration Furosemide 20 mg 01/16/22 09:00 01/16/22 08:26 Furosemide 20 Mg Tablet PO 20 mg DAILY ANTOINETTE Administration Sodium Chloride 1,000 mls @ 100 mls/hr 01/15/22 21:00 01/17/22 04:46
[2022-01-17] MEDS: LIDOCAINE HCL 2% LOCAL INJ 20 ML VIAL INFILTRATE (13:25)
[2022-01-17] MEDS: SILVER NITRATE (*SP) STICK 1 EACH TOPICAL (13:40)
[2022-01-17 14:00] VITALS: BP 143/57; PULSE 89; RESP 20; TEMP 37.6; O2SAT 97
[2022-01-17] MEDS: ACYCLOVIR 200 MG CAPSULE PO ×2 (14:29→21:37)
[2022-01-17] MEDS: MULTIVITAMINS THERAPEUTIC TAB (*BKC) 1 TABLET PO (14:29)
[2022-01-17] MEDS: FUROSEMIDE 20 MG TABLET PO (14:29)
[2022-01-17] MEDS: CALCIUM CARBONATE (TUMS) 500 MG (200 MG ELEMENTAL) PO (14:29)
[2022-01-17] MEDS: FAMOTIDINE 20 MG TABLET 40 MG PO (14:29)
--- NOTE | 2022-01-17 15:03 | W.PM.PROC2 ---
Procedure Note - Detailed Date of Procedure 01/17/22 Pre-op Diagnosis Left lower leg lesion Post-op Diagnosis Same Procedure Performed Incisional biopsy of left lower leg lesion Surgeon Rehana Rajan, [employer] Therapist Dr. Alexis Thomas Anesthesia Local (Lidocaine 2%) Indications This is a 76 year old male with multiple myeloma who has been undergoing treatment by Dr. Shay. He developed a skin lesion on his left lower medial leg and posterior scalp about 4-5 weeks ago. This has continued to grow in size over the past few weeks. He presented to the ER with associated swelling and redness of the left lower leg and was admitted for treatment of left lower leg cellulitis. Oncology was consulted and requested that we see the patient for these lesions to possibly biopsy. We have had conversations with Oncology and the patient, and have decided to proceed with an incisional biopsy of the left lower leg lesion today at the bedside with local anesthetic. Findings Abnormal raised skin lesion on the left medial lower leg near the ankle with very friable bleeding skin and no signs of infection or purulent drainage. The incisional biopsy was sent for pathology. Description of Procedure The patient was in the bed lying supine and we had him position himself slightly on his left side with his left leg turned in external rotation and situated on the side of the hospital bed. After a surgical time out, confirming the patient and procedure, the patient was prepped with chlorhexidine and draped in the usual sterile fashion. I used a sterile skin marker to mikel the expected elliptical incision with about 2/3 of the specimen including the skin lesion and the 1/3 of the cephalad portion of the specimen extending to more normal appearing skin. Local anesthetic was infiltrated just cephalad to where the incision would be made to provide basically a superficial nerve block while avoiding direct injection of the local anesthetic in the skin lesion to avoid distorting the tissue. Prior to making the incision, I tested his sensation with a sharp needle and the local anesthetic seemed to be effective. An elliptical incision was then made as mentioned above. I dissected down to the subcutaneous tissues and then completely excised the specimen to send for pathology. The specimen measured 3 cm in length. I then excised two more small about 1 cm x 0.3 cm additional tissue specimens on the more proximal area of the wound to send for tissue culture. The skin and tissue of the lesion appeared very vascular and friable. I had to apply pressure and also use silver nitrate sticks with the handheld Bovie cautery to achieve hemostasis. I then attempted to place 3-0 Nylon sutures starting at the lateral edges of the wound for closure. With his edema and taught nature of the skin in this area, it was extremely difficult to get the skin approximated even with manually pushing out some of the edema in this area and using pressure on both sides to help manually aid in approximating the skin. There were multiple attempts of putting the sutures in with both simple interrupted sutures and vertical mattress sutures to help approximate the skin. The nylon suture continued to tear through the skin after at least 5 attempts. I was able to successfully place two simple sutures, one on each end of the wound, and then an additional vertical mattress suture and another simple interrupted suture on the cephalad portion of the wound. This helped approximate about 1/3 of the wound, but the remainder of the wound was left open due to the inability to approximate the edges. I then applied sterile Telfa gauze over the wound with sterile 4 x 4 gauze over this, and wrapped his left lower foot and leg with 4 and 6 vishal wrap to help with compression. The patient tolerated the procedure well. Estimated Blood Loss 5 Drains No Packing No Pathology Yes (The specimen was taken fresh in a sterile container and the smaller tissue spec
--- NOTE | 2022-01-17 17:03 | WPDONCPN ---
Progress Note: A/P - Additional Plan Stage III multiple myeloma. Patient had a biopsy of the left lower extremity medial malleolus lesion performed. Case discussed with Dr. 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 Plan is to resume chemotherapy as an outpatient. He will also be referred to Dr. Dwyer for radiation therapy consultation. I have also discussed this case with Dr. Donna Lopes today. Lower extremity lymphedema and cellulitis. Patient is on antibiotic. CT scan has been ordered. Patient can be discharged home and will follow-up with us next week to start chemotherapy treatment. 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 He has some pain in the left medial malleolus plasmacytoma. Denies any fevers and chills. Denies any other new complaints. - Neurologic Reports system reviewed and no additional complaints, except as documented, Reports numbness (bilateral feet and ankles over the past month), Reports tingling (bilateral feet and ankles over the past month), Denies focal weakness Exam Vital signs: Temp Pulse Resp BP Pulse Ox 37.6 C H 89 20 143/57 H 97 01/17/22 14:00 01/17/22 14:00 01/17/22 14:00 01/17/22 14:00 01/17/22 14:00 Narrative: Lungs are clear to auscultation bilaterally Cardiovascular regular rate rhythm no murmurs Abdomen soft nontender nondistended bowel sounds are positive Extremities bilateral lower extremity edema worse in the left lower extremity with plasmacytoma involving medial malleolus. PN: Objective Data - Labs CBC & Chem 7: 01/17/22 06:28 01/17/22 06:28 Labs: Laboratory Results - last 24 hr 01/17/22 01/17/22 01/17/22 03:38 06:28 06:28 WBC 3.6 L RBC 2.97 L Hgb 9.8 L Hct 30.8 L MCV 103.7 H MCH 33.0 MCHC 31.8 L RDW 13.8 Plt Count 152 MPV 8.6 Immature Gran % (Auto) 0.3 Neut % (Auto) 75.5 H Lymph % (Auto) 7.2 L Pi[place] % (Auto) 13.1 H Eos % (Auto) 3.3 Baso % (Auto) 0.6 Lymph # (Auto) 0.26 L [place] # (Auto) 0.5 Eos # (Auto) 0.1 Baso # (Auto) 0.0 Abs Immat Gran (auto) 0.01 Absolute Neuts (auto) 2.7 Absolute Nucleated RBC 0.0 Nucleated RBC % 0.0 PT INR APTT Sodium 139 Potassium 3.9 Chloride 111 H Carbon Dioxide 22 Anion Gap 6 L BUN 12 D Creatinine 1.10 Estim Creat Clear Calc 61 Estimated GFR > 60 Glucose 102 Calcium 7.9 L Magnesium 2.1 Total Bilirubin 0.5 AST 25 ALT 15 Alkaline Phosphatase 48 Total Protein 7.0 Albumin 3.6 SARS-CoV-2 RNA (RT-PCR) Negative 01/17/22 08:04 WBC RBC Hgb Hct MCV MCH MCHC RDW Plt Count MPV Immature Gran % (Auto) Neut % (Auto) Lymph % (Auto) Pi[place] % (Auto) Eos % (Auto) Baso % (Auto) Lymph # (Auto) Pi[place] # (Auto) Eos # (Auto) Baso # (Auto) Abs Immat Gran (auto) Absolute Neuts (auto) Absolute Nucleated RBC Nucleated RBC % PT 14.6 INR 1.2 APTT 30.5 Sodium Potassium Chloride Carbon Dioxide Anion Gap BUN Creatinine Estim Creat Clear Calc Estimated GFR Glucose Calcium Magnesium Total Bilirubin AST ALT Alkaline Phosphatase Total Protein Albumin SARS-CoV-2 RNA (RT-PCR)
[2022-01-17] MEDS: HYDROcodone/acetaminophen (*CRX) 5-325 MG TABLET 1 TAB PO (18:32)
[2022-01-17] MEDS: LIDOCAINE 5% PATCH 1 PATCH TRANSDERM (18:35)
[2022-01-17] MEDS: CHOLECALCIFEROL 1,000 UNITS TABLET 1000 UNITS PO (21:38)
[2022-01-17] MEDS: amLODIPine BESYLATE 5 MG TABLET 10 MG PO (21:38)
[2022-01-17] MEDS: ATORVASTATIN 20 MG TABLET PO (21:55)
[2022-01-17 22:00] VITALS: BP 141/67; PULSE 95; RESP 18; TEMP 37.3; O2SAT 96
[2022-01-18] MEDS: HYDROcodone/acetaminophen (*CRX) 5-325 MG TABLET 1 TAB PO (00:02)
[2022-01-18] MEDS: CALCIUM CARBONATE (TUMS) 500 MG (200 MG ELEMENTAL) PO ×3 (00:04→17:10)
[2022-01-18 05:43] VITALS: BP 137/75; PULSE 90; RESP 18; TEMP 38.2; O2SAT 95
[2022-01-18 06:39] VITALS: TEMP 38.2
[2022-01-18] MEDS: ACETAMINOPHEN 500 MG TABLET 1000 MG PO (06:39)
[2022-01-18 06:56] LABS: Estimated CRCL calculation 48 ml/min; Estimated Glomerular Filt Rate 49
[2022-01-18 07:39] VITALS: TEMP 37.1
[2022-01-18 08:00] VITALS: O2SAT 95
[2022-01-18] MEDS: DEXAMETHASONE 4 MG TABLET 20 MG PO (09:16)
[2022-01-18] MEDS: FAMOTIDINE 20 MG TABLET 40 MG PO (09:16)
[2022-01-18] MEDS: MULTIVITAMINS THERAPEUTIC TAB (*BKC) 1 TABLET PO (09:16)
[2022-01-18] MEDS: ACYCLOVIR 200 MG CAPSULE PO ×2 (09:17→17:10)
[2022-01-18] MEDS: FUROSEMIDE 40 MG TABLET PO (09:17)
--- NOTE | 2022-01-18 12:32 | PM.PNGS ---
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 Biopsy done yesterday suggest preliminarily that there is a Plasmacytoma there. (See yesterday's op note and oncology note). (2) Pelvic hematoma in male: Onset Date: Unknown Code(s): N50.1 - Vascular disorders of male genital organs Status: Acute Assessment and Plan: Previously unknown, this was discovered on CT scan done yesterday. Patient had been on anticoagulation so this may be the explanation. I do not know of any trauma that would have caused it. (3) Skin lesion of left leg: Onset Date: ~12/2021 Code(s): L98.9 - Disorder of the skin and subcutaneous tissue, unspecified Status: Acute Assessment and Plan: Postop day 1 status post incisional biopsy suggesting plasmacytoma. ( Final path pending). Interestingly is noting that the patient may have also had a plasmacytoma type tumor growth in the duodenum upon his EGD biopsy done last June. (See previous path report in the chart). (4) Scalp lesion: Onset Date: ~12/2021 Code(s): L98.9 - Disorder of the skin and subcutaneous tissue, unspecified Status: Acute Assessment and Plan: Suspected separate site of possible plasmacytoma. (5) Port-A-Cath in place: Code(s): Z95.828 - Presence of other vascular implants and grafts Status: Acute (6) Multiple myeloma: Code(s): C90.00 - Multiple myeloma not having achieved remission Status: Acute (7) Lower extremity edema: Onset Date: ~01/2022 Code(s): R60.0 - Localized edema Status: Acute Assessment and Plan: This may be on the basis of the hematoma in the pelvis because it is surrounding the iliac vein and artery on that left side where his swelling is more left-sided also. Additional Plan Since we could not approximate the wound where we did the biopsy we would suggest a daily dressing change covering the area of the wound with silver gel followed by 2 folded 4x4s followed by holding it in place with the Eric wrap with compression from the mid foot to just below the knee using a 4 in Eric around the ankle and a 6 in Eric from the ankle up to just below the knee. Subjective Subjective Date/Time Seen: 01/18/22 12:32 Post Op day: 1 (Status post skin biopsy medial malleolus left ankle area.) Patient reports: still having pain Interval history: He is still complaining of some swelling of his left lower extremity and now some of the right lower extremity also. Otherwise feels okay/unchanged. Review of Systems Review of Systems: All systems reviewed & are unremarkable except as noted in HPI and below Constitutional: Constitutional: Reports as per HPI, Denies chills and Denies fever(s) Cardiovascular: Cardiovascular: Denies chest pain and Denies dyspnea Respiratory: Respiratory: Reports no additional respiratory complaints and Denies dyspnea Gastrointestinal: Gastrointestinal: Reports as per HPI and Denies bloating Musculoskeletal: Musculoskeletal: Reports no additional musculoskeletal complaints Integumentary/Breasts: Comments: states he did not have too much pain after our skin biopsy on his left ankle yesterday. States he had increased swelling of his thigh while his lower left extremity was wrapped. Therefore there was more limited wrap around the actual site of the surgery today when we 1st came in the room. Neurologic: Denies memory loss Psychiatric: Psychiatric: Denies anxiety and Denies memory loss Exam Const: General: cooperative, comfortable, alert and awake Orientation/consciousness: patient oriented x3 HENMT: He
--- NOTE | 2022-01-18 13:07 | P.DS_ITS ---
DS: Summary Time Spent with Patient Time attestation: Total time spent providing and/or coordinating discharge ser vices: DS: Data Data Completed and Pending Labs on day of discharge: Labs from last 24 hours 01/18/22 06:07 Creatinine 1.40 H Estim Creat Clear Calc 48 Estimated GFR 49 L Preliminary micro results at discharge 01/17/22 13:25 Wound Culture - Preliminary Ankle Left 01/15/22 14:39 Blood Culture - Preliminary Blood 01/15/22 14:39 Blood Culture - Preliminary Blood Discharge Plan Discharge Attending physician on discharge: Aileen Wright Consulting providers: Emerson Shay ; Alexis Thomas Discharging Clinician: Aileen Wright Anticipated Discharge Date/Time: 01/18/22 13:03 Patient Disposition: Home, Self-Care Activity: as tolerated Diet: heart healthy Patient Instructions: Antibiotic Form, Rivaroxaban (By mouth), Cellulitis (GEN) Stand Alone Forms: General Discharge Information Follow-up/Referrals: Emerson Shay MD [Physician] [facility],ANUPAMA Lawson [Primary Care Provider] - Discharge Medications: New furosemide 40 mg Tablet 40 mg PO DAILY Qty: 30 RF: 0 lidocaine [Lidoderm] 5 % Adhesive Patch,Medicated 1 patch transdermal DAILY Qty: 30 RF: 0 Continued atorvastatin 20 mg Tablet 20 mg PO HS RF: 0 amlodipine 10 mg Tablet 10 mg PO HS RF: 0 acyclovir 200 mg capsule 200 mg PO BID RF: 0 multivitamin Tablet 1 tablet PO DAILY RF: 0 calcium carbonate [Calcium 500] 500 mg calcium (1,250 mg) Tablet,Chewable 500 mg PO BID RF: 0 cholecalciferol (vitamin D3) [Vitamin D3] 25 mcg (1,000 unit) Tablet,Chewable 25 mcg PO HS RF: 0 famotidine 40 mg tablet 40 mg PO DAILY RF: 0 polyethylene glycol 3350 [Miralax] 17 gram/dose Powder 17 g PO DAILY PRN (Reason: Constipation) RF: 0 dexamethasone 4 mg tablet 20 mg PO WEEKLY RF: 0 acetaminophen 500 mg Tablet 1,000 mg PO Q8H PRN (Reason: Pain) RF: 0 OraMagicRx Mouthwash 1 ea MUCOUS MEMBRANE Q4H PRN (Reason: Mild Pain (Scale Score 1-4)) RF: 0 Xarelto 10 mg tablet 10 mg PO 1700 RF: 0 No Action furosemide 20 mg Tablet 20 mg PO DAILY RF: 0 Date of admission: 01/16/22 09:12 Primary Care Provider: SouravLulu Admitting Provider: Kasia Hernandez Attending physician on admission: Kasia Hernandez Condition: Stable Quality VTE Prophylaxis VTE prophylaxis: pharmacologic ordered
[2022-01-18 14:00] VITALS: BP 136/61; PULSE 93; RESP 18; TEMP 36.9; O2SAT 95
--- NOTE | 2022-01-18 14:59 | PCPTNOTE ---
Attempted to see patient for physical therapy evaluation and Mr. Cao informed me he was placed on new bed rest secondary to new found hematoma in pelvis. I spoke with Dr. Wright in person regarding his PT consultation and she would like to hold PT until further CT scans are performed. She states that when she is ready to resume PT orders she will place a clarification.
--- NOTE | 2022-01-18 16:36 | PCOTNOTE ---
Pt on hold for therapy evaluations, per physical therapy. PT spoke with Kyle in person, who informed informed her he was placed on new bed rest secondary to new found hematoma in pelvis. Regarding his therapy consultation, she would like to hold OT/PT until further CT scans are performed. She states that when she is ready to resume OT/PT orders she will place a clarification.
--- NOTE | 2022-01-18 17:52 | PM.IMPN ---
Progress Note: A&P Assessment and Plan (1) Cellulitis of left leg: Code(s): L03.116 - Cellulitis of left lower limb Status: Acute (2) Port-A-Cath in place: Code(s): Z95.828 - Presence of other vascular implants and grafts Status: Acute (3) Multiple myeloma: Code(s): C90.00 - Multiple myeloma not having achieved remission Status: Acute (4) Lower extremity edema: Onset Date: ~01/2022 Code(s): R60.0 - Localized edema Status: Acute (5) Pelvic hematoma in male: Onset Date: Unknown Code(s): N50.1 - Vascular disorders of male genital organs Status: Acute (6) Anticoagulated by anticoagulation treatment: Code(s): Z79.01 - detention (current) use of anticoagulants Status: Acute (7) Scalp lesion: Onset Date: ~12/2021 Code(s): L98.9 - Disorder of the skin and subcutaneous tissue, unspecified Status: Acute (8) Skin lesion of left leg: Onset Date: ~12/2021 Code(s): L98.9 - Disorder of the skin and subcutaneous tissue, unspecified Status: Acute (9) Metastatic multiple myeloma to bone: Onset Date: Unknown Code(s): C90.00 - Multiple myeloma not having achieved remission Status: Acute (10) Hyperlipidemia: Code(s): E78.5 - Hyperlipidemia, unspecified Status: Chronic (11) Hypertension: Code(s): I10 - Essential (primary) hypertension Status: Chronic Additional Plan 01/15/22 Patient was placed on Keflex as an outpatient had no improvement in in the edema and erythema have his left lower extremity. At this point time will place patient on vancomycin and cefepime. Will culture the raised erythemic area if there is any drainage and will deescalate antibiotics as able to. Oncology has been consult and do appreciate any further recommendations. Patient's kidney function is above baseline. Will gently hydrate patient and continue to monitor laboratories. 01/16/22 pt doing ok no overnight events US negative for DVT spoke w surgery will need to hold OAC x bx cont abx cont supportive care am labs 01/17/[address] abd pelvis w contrast lasix 20mg -> 40mg cont current care PT/OT 01/18/22 dc abx intraabd/pelvic hematoma spoke w surgeon no plan for intervention high risk for further bleeding and infection in immunocompromised pt LE weakness swelling and difficulty ambulating CT abd pelvis noncon in am PT/OT dc recs after scan anticipate dc to SNF soon Subjective Date/time seen: 01/18/22 17:52 intrapelvic hematoma on imaging findings and POC reviewed w pt and his . will wake for medical consensus to plan how to proceed Exam Narrative: Constitutional: no acute distress. alert and oriented x3 HEENT: Moist mucous membranes. No scleral icterus. Neck: no JVD Lungs: Lung sounds are clear to auscultation bilaterally. No accessory muscle use. Abdomen: Soft, round, and nontender. Extremities: Patient has 3 to 4+ edema to left lower extremity. LLE lesion wrapped in clean dry vishal bandage dressing after bx Skin: No rashes or lesions. Warm and dry. Skin is intact. scalp w 2cm x 2cmx 2.5cm dark red growth.soft nonfluctuant Neurological: No focal neurological deficits. Cranial nerves II-XII grossly intact. Psychiatric: Cooperative, appropriate mood, and affect Objective Data Vital Signs Vital Signs: Vital Signs - 24 hr 01/17/22 22:00 01/18/22 05:43 01/18/22 06:39 Temperature 99.2 F 100.8 F H 100.8 F H Pulse Rate 95 90 Respiratory Rate 18 18 Blood Pressure 141/67 H 137/75 Pulse Oximetry 96 95 01/18/22 07:39 01/18/22 08:00 01/18/22 14:00 Temperature 98.7 F 98.5 F Pulse Rate 93 Respiratory Rate 18 Blood Pressure 136/61 Pulse Oximetry 95 95 Intake/Output Intake/Output: Intake & Output 01/15/22 01/16/22 01/17/22 01/18/22 23:59 23:59 23:59 23:59 Intake Total 100 5020 1280 1270 Balance 100 5020 1280 1270 Meds/Result
[2022-01-18] MEDS: amLODIPine BESYLATE 5 MG TABLET 10 MG PO (21:05)
[2022-01-18] MEDS: ATORVASTATIN 20 MG TABLET PO (21:05)
[2022-01-18] MEDS: CHOLECALCIFEROL 1,000 UNITS TABLET 1000 UNITS PO (21:06)
[2022-01-18 21:54] VITALS: BP 137/65; PULSE 90; RESP 18; TEMP 36.7; O2SAT 95
[2022-01-19 05:48] VITALS: BP 144/65; PULSE 84; RESP 20; TEMP 36.7; O2SAT 96
[2022-01-19 08:00] VITALS: O2SAT 96
[2022-01-19] MEDS: CALCIUM CARBONATE (TUMS) 500 MG (200 MG ELEMENTAL) PO ×2 (09:01→17:11)
[2022-01-19] MEDS: FUROSEMIDE 40 MG TABLET PO (09:01)
[2022-01-19] MEDS: MULTIVITAMINS THERAPEUTIC TAB (*BKC) 1 TABLET PO (09:01)
[2022-01-19] MEDS: FAMOTIDINE 20 MG TABLET 40 MG PO (09:01)
[2022-01-19] MEDS: ACYCLOVIR 200 MG CAPSULE PO ×2 (09:01→17:11)
--- NOTE | 2022-01-19 10:04 | PM.PNGS ---
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 (See 01/17's op note and oncology note). (2) Pelvic hematoma in male: Onset Date: Unknown Code(s): N50.1 - Vascular disorders of male genital organs Status: Acute Assessment and Plan: Previously unknown, this was discovered on CT scan done 01/17. Patient had been on anticoagulation so this may be the explanation. I do not know of any trauma that would have caused it. ( 01/19 ---- patient confirms no recent invasive procedures in the left groin and no specific fall or trauma at home that he remembers.) (3) Skin lesion of left leg: Onset Date: ~12/2021 Code(s): L98.9 - Disorder of the skin and subcutaneous tissue, unspecified Status: Acute Assessment and Plan: Postop day 2 status post incisional biopsy suggesting plasmacytoma. ( Final path pending). Interestingly, it is noted that the patient may have also had a plasmacytoma type tumor growth in the duodenum upon his EGD biopsy done last June. (See previous path report in the chart). (4) Scalp lesion: Onset Date: ~12/2021 Code(s): L98.9 - Disorder of the skin and subcutaneous tissue, unspecified Status: Acute Assessment and Plan: Suspected separate site of possible plasmacytoma. (5) Port-A-Cath in place: Code(s): Z95.828 - Presence of other vascular implants and grafts Status: Acute (6) Multiple myeloma: Code(s): C90.00 - Multiple myeloma not having achieved remission Status: Acute (7) Lower extremity edema: Onset Date: ~01/2022 Code(s): R60.0 - Localized edema Status: Acute Assessment and Plan: This may be on the basis of the hematoma in the pelvis because it is surrounding the iliac vein and artery on that left side where his swelling is more left-sided also. Additional Plan Since we could not approximate the wound where we did the biopsy we would suggest a daily dressing change covering the area of the wound with silver gel followed by 2 folded 4x4s followed by holding it in place with the Eric wrap with compression from the mid foot to just below the knee using a 4 in Eric around the ankle and a 6 in Eric from the ankle up to just below the knee. Agree with PT OT evaluation and increasing patient mobility. May consider using lymphedema pump if available for the left lower extremity to try to reduce the edema and improve flow up the leg. Most likely swelling is related to some compression of the left iliac vein related to the apparent spontaneous hematoma between it and the psoas muscle in the deep pelvis noted on CT. Subjective Subjective Date/Time Seen: 01/19/22 10:04 Patient is sitting up eating breakfast when I entered the room. Not complaining of much pain. Still complains of weakness in his right leg and swelling in his left leg. Review of Systems Review of Systems: All systems reviewed & are unremarkable except as noted in HPI and below Constitutional: Constitutional: Reports as per HPI, Denies chills, Denies fatigue and Denies fever(s) ENT: Reports Normal hearing present and Denies neck pain Respiratory: Respiratory: Reports no additional respiratory complaints, Reports no additional respiratory complaints, Denies cough and Denies dyspnea Musculoskeletal: Musculoskeletal: Reports no additional musculoskeletal complaints, Reports as per HPI, Denies deformity, Reports numbness (bilateral feet and ankles over the past month), Reports tingling (bilateral feet and ankles over the past month) and
[2022-01-19 14:00] VITALS: BP 140/66; PULSE 95; RESP 18; O2SAT 97
[2022-01-19 15:35] VITALS: TEMP 38
[2022-01-19] MEDS: ACETAMINOPHEN 500 MG TABLET 1000 MG PO ×2 (15:35→23:36)
--- NOTE | 2022-01-19 16:30 | PM.IMPN ---
Progress Note: A&P Assessment and Plan (1) Cellulitis of left leg: Code(s): L03.116 - Cellulitis of left lower limb Status: Acute (2) Port-A-Cath in place: Code(s): Z95.828 - Presence of other vascular implants and grafts Status: Acute (3) Multiple myeloma: Code(s): C90.00 - Multiple myeloma not having achieved remission Status: Acute (4) Lower extremity edema: Onset Date: ~01/2022 Code(s): R60.0 - Localized edema Status: Acute (5) Pelvic hematoma in male: Onset Date: Unknown Code(s): N50.1 - Vascular disorders of male genital organs Status: Acute (6) Anticoagulated by anticoagulation treatment: Code(s): Z79.01 - jail (current) use of anticoagulants Status: Acute (7) Scalp lesion: Onset Date: ~12/2021 Code(s): L98.9 - Disorder of the skin and subcutaneous tissue, unspecified Status: Acute (8) Skin lesion of left leg: Onset Date: ~12/2021 Code(s): L98.9 - Disorder of the skin and subcutaneous tissue, unspecified Status: Acute (9) Metastatic multiple myeloma to bone: Onset Date: Unknown Code(s): C90.00 - Multiple myeloma not having achieved remission Status: Acute (10) Hyperlipidemia: Code(s): E78.5 - Hyperlipidemia, unspecified Status: Chronic (11) Hypertension: Code(s): I10 - Essential (primary) hypertension Status: Chronic Additional Plan 01/15/22 Patient was placed on Keflex as an outpatient had no improvement in in the edema and erythema have his left lower extremity. At this point time will place patient on vancomycin and cefepime. Will culture the raised erythemic area if there is any drainage and will deescalate antibiotics as able to. Oncology has been consult and do appreciate any further recommendations. Patient's kidney function is above baseline. Will gently hydrate patient and continue to monitor laboratories. 01/16/22 pt doing ok no overnight events US negative for DVT spoke w surgery will need to hold OAC x bx cont abx cont supportive care am labs 01/17/[address] abd pelvis w contrast lasix 20mg -> 40mg cont current care PT/OT 01/18/22 dc abx intraabd/pelvic hematoma spoke w surgeon no plan for intervention high risk for further bleeding and infection in immunocompromised pt LE weakness swelling and difficulty ambulating CT abd pelvis noncon in am PT/OT dc recs after scan anticipate dc to SNF soon 01/19/22 low grade fevers/ lymphoma hematoma RUBENS after contrast repeat BMP in am fluids low dose tonight PT/OT assess and pt cleared for C pt and in agreement anticipate dc in am Subjective Date/time seen: 01/19/22 16:30 pt doing ok up working w PT repeat imaging stable Exam Narrative: Constitutional: no acute distress. alert and oriented x3 HEENT: Moist mucous membranes. No scleral icterus. Neck: no JVD Lungs: Lung sounds are clear to auscultation bilaterally. No accessory muscle use. Abdomen: Soft, round, and nontender. Extremities: Patient has 3 to 4+ edema to left lower extremity. LLE lesion wrapped in clean dry vishal bandage dressing after bx Skin: No rashes or lesions. Warm and dry. Skin is intact. scalp w 2cm x 2cmx 2.5cm dark red growth.soft nonfluctuant Neurological: No focal neurological deficits. Cranial nerves II-XII grossly intact. Psychiatric: Cooperative, appropriate mood, and affect Objective Data Vital Signs Vital Signs: Vital Signs - 24 hr 01/18/22 21:54 01/19/22 05:48 01/19/22 08:00 Temperature 98.0 F 98.0 F Pulse Rate 90 84 Respiratory Rate 18 20 Blood Pressure 137/65 144/65 H Pulse Oximetry 95 96 96 01/19/22 15:35 Temperature 100.4 F H Pulse Rate Respiratory Rate Blood Pressure Pulse Oximetry Intake/Output Intake/Output: Intake & Output 01/16/22 01/17/22 01/18/22 01/19/22 23:59 23:59 23:59 23:59 Intake Total 7507 5155 5545
[2022-01-19 16:35] VITALS: TEMP 37.8
[2022-01-19] MEDS: SILVERGEL (ELTA) 45 ML 1 APPLIC TOPICAL (17:07)
[2022-01-19] MEDS: SODIUM CHLORIDE 0.9% IV 1,000 ML 50 ML IV CONT (17:14)
[2022-01-19] MEDS: LIDOCAINE 5% PATCH 1 PATCH TRANSDERM (18:46)
[2022-01-19] MEDS: amLODIPine BESYLATE 5 MG TABLET 10 MG PO (20:10)
[2022-01-19] MEDS: ATORVASTATIN 20 MG TABLET PO (20:10)
[2022-01-19] MEDS: CHOLECALCIFEROL 1,000 UNITS TABLET 1000 UNITS PO (20:10)
[2022-01-19 22:00] VITALS: BP 141/91; PULSE 93; RESP 18; TEMP 37.8; O2SAT 97
[2022-01-20 06:00] VITALS: BP 145/62; PULSE 85; RESP 16; TEMP 37.4; O2SAT 97
[2022-01-20 07:12] LABS: Hemoglobin 9.1 g/dL (14.0-18.0); Mean Corpuscular HGB Conc 32.5 g/dl (32-36); Mean Corpuscular Hemoglobin 32.4 pg (26-34); Mean Corpuscular Volume 99.6 fl (80-100); Mean Platelet Volume 8.6 fl (7.4-10.4); Platelet Count Result 191 k/mm3 (150-375); Red Blood Count 2.81 M/mm3 (4.6-6.20); Red Cell Distribution Width 13.8 % (11.5-14.5); White Blood Count 5.6 K/mm3 (4.5-10.0)
[2022-01-20 07:37] LABS: Anion Gap 9 mmol/L (8-16); Blood Urea Nitrogen 22 mg/dL (9-20); Calcium 8.1 mg/dL (8.4-10.2); Carbon Dioxide 22 mmol/L (22-30); Chloride 107 mmol/L (98-107); Estimated CRCL calculation 56 ml/min; Estimated Glomerular Filt Rate 59; Glucose 96 mg/dL (65-110); Magnesium 2.1 mg/dL (1.6-2.3); Potassium 3.6 mmol/L (3.4-5.0); Sodium 138 mmol/L (137-145)
[2022-01-20] MEDS: ACYCLOVIR 200 MG CAPSULE PO (09:00)
[2022-01-20] MEDS: MULTIVITAMINS THERAPEUTIC TAB (*BKC) 1 TABLET PO (09:00)
[2022-01-20] MEDS: FAMOTIDINE 20 MG TABLET 40 MG PO (09:00)
[2022-01-20] MEDS: FUROSEMIDE 40 MG TABLET PO (09:00)
[2022-01-20] MEDS: CALCIUM CARBONATE (TUMS) 500 MG (200 MG ELEMENTAL) PO (09:00)
--- NOTE | 2022-01-20 09:22 | PM.DS ---
DS: Admitting Diagnosis Discharge Date 01/20/22 Admitting Diagnosis (1) Cellulitis of left leg: Code(s): L03.116 - Cellulitis of left lower limb (2) Multiple myeloma: Code(s): C90.00 - Multiple myeloma not having achieved remission (3) RUBENS (acute kidney injury): Code(s): N17.9 - Acute kidney failure, unspecified DS: Discharge Diagnosis Discharge Diagnosis (1) Cellulitis of left leg: Code(s): L03.116 - Cellulitis of left lower limb Status: Ruled-out (2) Port-A-Cath in place: Code(s): Z95.828 - Presence of other vascular implants and grafts Status: Acute (3) Multiple myeloma: Code(s): C90.00 - Multiple myeloma not having achieved remission Status: Acute (4) Lower extremity edema: Onset Date: ~01/2022 Code(s): R60.0 - Localized edema Status: Acute (5) Pelvic hematoma in male: Onset Date: Unknown Code(s): N50.1 - Vascular disorders of male genital organs Status: Acute (6) Anticoagulated by anticoagulation treatment: Code(s): Z79.01 - half-way (current) use of anticoagulants Status: Acute (7) Scalp lesion: Onset Date: ~12/2021 Code(s): L98.9 - Disorder of the skin and subcutaneous tissue, unspecified Status: Acute (8) Skin lesion of left leg: Onset Date: ~12/2021 Code(s): L98.9 - Disorder of the skin and subcutaneous tissue, unspecified Status: Acute (9) Metastatic multiple myeloma to bone: Onset Date: Unknown Code(s): C90.00 - Multiple myeloma not having achieved remission Status: Acute (10) Hyperlipidemia: Code(s): E78.5 - Hyperlipidemia, unspecified Status: Chronic (11) Hypertension: Code(s): I10 - Essential (primary) hypertension Status: Chronic (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 At this point time will place patient on vancomycin and cefepime. Will culture the raised erythemic area if there is any drainage and will deescalate antibiotics as able to. Oncology has been consult and do appreciate any further recommendations. Patient's kidney function is above baseline. Will gently hydrate patient and continue to monitor laboratories. 01/16/22 pt doing ok no overnight events US negative for DVT spoke w surgery will need to hold OAC x bx cont abx cont supportive care am labs 01/17/[address] abd pelvis w contrast lasix 20mg -> 40mg cont current care PT/OT 01/18/22 dc abx intraabd/pelvic hematoma spoke w surgeon no plan for intervention high risk for further bleeding and infection in immunocompromised pt LE weakness swelling and difficulty ambulating CT abd pelvis noncon in am PT/OT dc recs after scan anticipate dc to SNF soon 01/19/22 low grade fevers/ lymphoma hematoma RUBENS after contrast repeat BMP in am fluids low dose tonight PT/OT assess and pt cleared for [facility]HC pt and in agreement anticipate dc in am 01/20/22 RUBENS resolved path preliminary findings suggestive of plasmacytoma pt has again developed a diffuse macular rash blanching w scattered petechiae similar to last admission rash attributed this time to underlying malignancy Bendryl ordered dc home w HHC in stable condition w indications to follow up w PCP and Oncologist Time Spent with Patient Time attestation: Total time spent providing and/or coordinating discharge services: Time spent: Greater than 30 minutes Exam Narrative: Constitutional: no acute distress. alert and oriented x3 HEENT: Moist mucous membranes. No scleral icterus. Neck: no JVD Lungs: Lung sounds are clear to auscultatio
[2022-01-20] MEDS: ACETAMINOPHEN 500 MG TABLET 1000 MG PO (09:54)
[2022-01-20] MEDS: SILVERGEL (ELTA) 45 ML 1 APPLIC TOPICAL (10:48)
[2022-01-20 12:08] LABS: Basophils Percent Auto 0.2 % (0.2-1.2); Eosinophils Absolute Auto 0.2 K/mm3 (0-0.3); Hematocrit 28.7 % (42.0-52.0); Hemoglobin 9.2 g/dL (14.0-18.0); Immature Granulocyte Absolute 0.03 K/mm3 (0.00-0.031); Immature Granulocyte Percent A 0.5 % (0-0.5); Lymphocytes Absolute Auto 0.31 K/mm3 (0.9-3.2); Lymphocytes Percent Auto 5.2 % (18.3-44.2); Mean Corpuscular HGB Conc 32.1 g/dl (32-36); Mean Corpuscular Volume 102.9 fl (80-100); Mean Platelet Volume 8.7 fl (7.4-10.4); Monocytes Absolute Auto 0.7 K/mm3 (0.1-0.6); Monocytes Percent Auto 11.2 % (2.6-8.5); Neutrophils Absolute Auto 4.7 K/mm3 (1.3-6.7); Neutrophils Percent Auto 78.9 % (45.5-73.1); Platelet Count Result 173 k/mm3 (150-375); Red Blood Count 2.79 M/mm3 (4.6-6.20)
[2022-01-20] MEDS: diphenhydrAMINE HCl INJ 50 MG/ML VIAL 25 MG IV PUSH (12:20)
== END 2022-01-20 14:20 | disposition home health service (06) | DRG 603 ==
LOC: ANHED 17:48 → ANH3MEDSUR 18:12
PROVIDERS: Nurse Practitioner Adult Health; Surgery; Admitting Provider Family Medicine; Emergency Provider Emergency Medicine; PCP Nurse Practitioner Adult Health; Visit Provider Hospitalist
DX: L03.116 Cellulitis of left lower limb (principal); C90.00 Multiple myeloma not having achieved remission; N17.9 Acute kidney failure, unspecified; I10 Essential (primary) hypertension; Z95.828 Presence of other vascular implants and grafts; R60.0 Localized edema; K21.9 Gastro-esophageal reflux disease without esophagitis; E78.5 Hyperlipidemia, unspecified; F41.9 Anxiety disorder, unspecified; Z79.899 Other long term (current) drug therapy; Z82.49 Family history of ischemic heart disease and other diseases of the circulatory system; N50.1 Vascular disorders of male genital organs; L98.9 Disorder of the skin and subcutaneous tissue, unspecified
CPT/HCPCS: 36415; 71046; 74176; 74177; 80048; 80053; 82565; 83605; 83735; 83880; 84484; 85025; 85027; 85610; 85730; 87015; 87040; 87070; 87102; 87116; 87205; 87206; 88184; 88305; 88331; 88341; 88342; 88365; 93005; 93970; 96365; 96366; 96367; 97161; 97165; 97535; 99285; A9270; C9803; G0378; J0690; J0692; J1200; J3370; J7030; J8540; Q9967; U0003; U0005